=== PATIENT | female | born 1955 | race Caucasian/White ===

== ENCOUNTER → 2017-08-18 11:19 | Outpatient (CLI) | payer BC, SELFPAY ==
--- NOTE | 2017-08-18 11:26 | RAD_ITS ---
STUDY: X-RAY CHEST REASON FOR EXAM: Female, 61 years old. Cough. TECHNIQUE: Frontal and lateral views of the chest. COMPARISON: 01/24/2016. FINDINGS: The lungs are clear and expanded. There is no demonstrated pleural abnormality. Normal size heart. Normal mediastinum and gildardo. Normal visualized pulmonary arteries. There is atherosclerotic calcification of the aortic arch with tortuosity. There are diffuse degenerative changes of the visualized thoracic spine. Normal visualized ribs, clavicles, and shoulders. There is no demonstrated abnormality of the visualized soft tissue structures of the upper abdomen. RAD/Chest PA and Lateral IMPRESSION: No evidence for acute cardiopulmonary pathology. Electronically Signed: Rex Coombs MD at 3:45 EDT , Service support ,
== END ==
PROVIDERS: Family Provider Internal Medicine; PCP Internal Medicine; Visit Provider Internal Medicine
DX: R05 Cough (principal)
CPT/HCPCS: 71046

== ENCOUNTER 2020-07-01 15:17 | Observation (INO) | payer BC, SELFPAY ==
[2020-07-01] VITALS (8 sets, daily range): BP systolic 128–174; BP diastolic 49–81; PULSE 67–92; RESP 16–20; TEMP 36.6–36.7; O2SAT 94–98; BMI 28.3; BMI 28.8; BMI 28.9
--- NOTE | 2020-07-01 15:26 | EKG12_ITS ---
Test Reason : AM EKG Blood Pressure : / mmHG Vent. Rate : 061 BPM Atrial Rate : 061 BPM P-R Int : 154 ms QRS Dur : 092 ms QT Int : 410 ms P-R-T Axes : -21 056 052 degrees QTc Int : 412 ms Normal sinus rhythm Normal ECG When compared with ECG of 01-JUL-2020 17:03, MANUAL COMPARISON REQUIRED, DATA IS UNCONFIRMED Confirmed by BETH CORTEZ, CURTIS ([id number]), assignment editor ANNETTE VILLANUEVA ([id number]) on 07/04/2020 1:01:52 PM Referred By: DR PICHARDO Confirmed By:CURTIS CAMPOS MD
[2020-07-01] MEDS: Aspirin 81 MG TAB.CHEW 324 MG PO (15:30)
--- NOTE | 2020-07-01 15:30 | RAD_ITS ---
STUDY: X-RAY CHEST REASON FOR EXAM: Female, 64 years old. chest pain TECHNIQUE: Single AP portable view of the chest. COMPARISON: AUGUST 18, 2017 FINDINGS: The lungs are clear and expanded. There is no demonstrated pleural abnormality. Normal size heart. Normal mediastinum and gildardo. Normal visualized pulmonary arteries. There is atherosclerotic calcification of the aortic arch with tortuosity. There are diffuse degenerative changes of the visualized thoracic spine. Normal visualized ribs, clavicles, and shoulders. There is no demonstrated abnormality of the visualized soft tissue structures of the upper abdomen. RAD/Chest 1 View (Portable) IMPRESSION: No acute process Electronically Signed: Kamaljit Ramirez MD at 16:48 EDT , Service support ,
--- NOTE | 2020-07-01 15:30 | ED.VIS.GEN ---
History of Present Illness Chief Complaint: Chest Pain Informant: Patient Onset: Hours Context: Sudden Onset Timing: Continuous Quality: Sharp mid chest left breast area Location: Left-sided chest Current Severity: Moderate Maximum Severity: Severe Worsened by: Nothing Relieved by: Nothing Associated Symptoms: Mild shortness of breath Narrative: She is a 64-year-old woman with history hypertension who is a smoker for 45+ years that presented because of left-sided sharp chest pain with mild shortness of breath. She denies history of coronary disease or heart problems. She states she has prediabetes. Her last A1c was 6.9. She also has hypercholesterolemia. She denies recent exertional chest pain. Patient denies headache, visual, ocular auditory symptoms. She denies loss of taste or smell. She denies exposure to Covid. She denies history of PE or DVT. She denies recent travel, surgery or immobilization. She denies leg pain, swelling discoloration. She denies orthopnea or PND. She denies gallbladder disease or intolerance to greasy or fried foods. She denies black or maroon-colored stool. Prior similar symptoms: No Recent Illness/Hospitalization: No - Past Medical History (1) Arm paresthesia, left Status: Acute (2) Cervical nerve root impingement Status: Acute (3) Family history of heart disease Status: Chronic (4) HLD (hyperlipidemia) Status: Chronic (5) HTN (hypertension) Status: Chronic (6) Nicotine addiction Status: Chronic Past Medical History - Allergies and Home Meds Allergies/Adverse Reactions: Allergies Sulfa (Sulfonamide Antibiotics) Allergy (Verified 07/01/20 15:18) Anaphylaxis Primary Care Physician: Nicolle John DO [Primary Care Provider] - Prior records reviewed: Yes Surgical History: no surgical history Lives: Alone Smoking Status: Current every day smoker Alcohol: Rare Drugs: None Review of Systems General: Denies: Chills, Fever, Malaise, Subjective, Sweats Eyes: Denies: Visual changes - bilaterally, Blurred Vision - bilaterally ENT: Denies: Rhinorrhea, Sore throat Cardiovascular: Reports: Chest pain. Denies: Palpitations, Heart racing, -, - Respiratory: Reports: Dyspnea. Denies: Cough, Sputum, Dyspnea on exertion, Orthopnea, Paroxysmal nocturnal dyspnea, -, - Genitourinary: Denies: Dysuria, Hematuria, Frequency Musculoskeletal: Denies: Myalgias, Arthralgias, Neck pain, Back pain, Swelling, Extremity Pain, -, - Skin: Denies: Rash, Wounds Neurological: Denies: Headache, Weakness Endocrine: Denies: Polyuria, Polydipsia Hematologic: Denies: Easy bruising, Easy bleeding Physical Exam Vital Signs/Narrative: Vital Signs Temp Pulse Resp BP Pulse Ox 07/01/20 15:18 97.8 F 92 20 H 174/73 H 98 Inital Vital Signs reviewed: Yes General: Well nourished, Well developed, Obese, No Acute Distress Head: Normocephalic, Atraumatic Eyes: Perrl, EOMI ENT: Moist mucous membranes, No rhinorrhea Neck: Supple, Nontender Cardiovascular: Regular rate, Regular rhythm, No murmurs, Normal S1, Normal S2 Respiratory: No distress, CTA bilaterally, Chest nontender Abdomen: Soft, Nontender, Nondistended, Normal bowel sounds, No masses. Negative for: Demarco's sign Back: Nontender, Normal Inspection, - - There is no asymmetry, swelling, discoloration, leg vein distention, palpable cords or tenderness along the distribution of the deep venous system. Extremities: Nontender, No edema Skin: Normal color, No rash Neurological: Alert, Oriented x3, Cranial nerves II-XII grossly intact, Normal Strength, Normal Sensation Psychological: Normal affect, Normal Mood Diagnostic/Tx/Re-eval Chest X-Ray - ED: 1 View, Read by ED Physician, Normal, Heart, Lungs, Mediastinum, Bony Structures, No Acute Disease, - - Single view chest x-ray was interpreted by me at 1544. 07/01/20 15:30 Chest 1 View (Portable) [RAD] Stat Laboratory Results 07/01/20 07/01/20 15:27 15:27 WBC 10.5 RBC 4.97 Hgb 15.3 H Hct 44.8 MCV 90.1 MCH 30.8 MCHC 34.2 RDW Std Deviation 41.5 RDW Coeff of Trixie 12.6 Plt Count 323 MPV 9.8 Immature Gran % (Auto) 0.600 Neut % (Auto) 57.8 Lymph % (Auto) 31.7 [place] % (Auto) 8.1 Eos % (Auto) 0.9 Baso % (Auto) 0.9 Absolute Neuts (auto) 6.1 Absolute Lymphs (auto) 3.34 Nucleated RBC % 0 Sodium 138 Potassium 3.4 L Chloride 107 Carbon Dioxide 25.0 Anion Gap 6 BUN 13 Creatinine 0.82 Estim Creat Clear Calc 70.68 Est GFR (MDRD) Af Amer 90 Est GFR (MDRD) Non-Af 75 BUN/Creatinine Ratio 15.9 Glucose 126 H Calcium 9.4 Troponin I < 0.015 Patient states there was no improvement with nitro. 4 mg of morphine and 4 mg Zofran was ordered. Patient's heart score is 4. For this reason hospitalist was paged for PCU 23 observation if patient is willing to stay otherwise will sign out AMA - EKG Initial EKG Interpretation: Sinus Rhythm - Normal sinus rhythm with a ventricular rate 83. MS interval is 136 ms. QRS duration 96 ms. QT duration 372 ms. [place] is normal. She does have abnormality ST segment in V1. This is unchanged from February 08, 2014. - Medical Decision Making Presents with chest pain. Differential diagnosis would include cardiac versus noncardiac ischemia. Doubt pulmonary embolus. This may represent GI etiology. EKG, chest x-ray and appropriate blood work was ordered. Since she is still experiencing pain and had slight ST elevation in V1 nitro series was ordered. The EKG performed today was compared to most recent which is February 08, 2014 and is unchanged. ED Disposition - Plan for ED Patient: Disposition: Acute Care Hospital [facility] Diagnosis: Chest pain, HTN (hypertension), HLD (hyperlipidemia) Referrals: Nicolle John DO [Primary Care Provider] -
[2020-07-01] MEDS: Nitroglycerin SL (ED/IMG/CATH) 0.4 MG TABLET SL ×2 (15:35→15:56)
[2020-07-01 15:40] LABS: Absolute Lymphocyte Count 3.34 X10^3/uL (0.83-4.51); Absolute Neutrophil Count 6.1 X10^3/uL (2.0-7.7); Basophil% 0.9 % (0-1); Eosinophil# 0.09 X10^3/uL; Eosinophils% 0.9 % (0-5); Hematocrit 44.8 % (37-47); Hemoglobin 15.3 g/dL (12.0-15.0); Lymphocyte # 3.34 X10^3/ul (4.0); Lymphocyte % 31.7 % (19-41); Mean Corp Hgb Conc 34.2 g/dL (32-36); Mean Corpuscular Hgb 30.8 pg (27.0-32.0); Mean Corpuscular Volume 90.1 fL (81-99); Mean Platelet Vol. 9.8 fl (6.2-12.0); Monocyte# 0.85 X10^3/uL; Monocyte% 8.1 % (0-10); NRBC Flagged by Analyzer 0 % (0-5); Neutrophil % 57.8 % (47-70); Platelet Count 323 K/mm3 (150-450); RBC Distribution Width CV 12.6 % (11.6-14.6); RBC Distribution Width SD 41.5 fl (35.1-43.9); Red Blood Count 4.97 M/mm3 (4.2-5.4); White Blood Count 10.5 K/mm3 (4.4-11.0)
[2020-07-01 15:53] LABS: Anion Gap 6 (5-15); BUN 13 mg/dL (7-18); BUN/Creat Ratio 15.9 RATIO (10-20); Calcium,Total 9.4 mg/dL (8.5-10.1); Chloride 107 mmol/L (98-107); Creatinine, Serum 0.82 mg/dL (0.55-1.02); EST Glomerular Filtration Rate 75 mL/min (>60); Est Glom Filt Rate - Afr Amer 90 mL/min (>60); Estimated Creatinine Clearance 70.68 ml/min; Glucose 126 mg/dL (74-106); Potassium 3.4 mmol/L (3.5-5.1); Sodium Level 138 mmol/L (136-145)
[2020-07-01] MEDS: Morphine 4 MG/ML Syringe IV (16:06)
[2020-07-01] MEDS: Ondansetron 4 MG/2 ML Vial IV (16:06)
--- NOTE | 2020-07-01 16:56 | HP.PCM_ITS ---
<Jolynn Earl [employer] - Last Filed: 07/01/20 17:03> Problem List (1) Chest pain Status: Acute (2) Radicular pain in left arm Status: Resolved (3) Cervical nerve root impingement Status: Chronic (4) HTN (hypertension) Status: Chronic (5) Arm paresthesia, left Status: Resolved (6) HLD (hyperlipidemia) Status: Chronic (7) Family history of heart disease Status: Chronic (8) Nicotine addiction Status: Chronic History of Present Illness Date of Admission: 07/01/20 Chief Complaint: Chest pain. The patient is a 64 year old F who presents to emergency room due to chest pain. Patient states this began this afternoon while she was driving her car. She states pain was sharp and under her left breast. She reports 8 out of 10 pain. Denies pain radiation. Denies lightheadedness, shortness of breath, diaphoresis. Patient reports pain lasted until receiving morphine in the emergency room. She states over the past couple days she has had intermittent left arm aching. Denies other symptoms or complaints. She has a past medical history of hypertension, hyperlipidemia, tobacco dependence, hypothyroidism, anxiety. Past Medical History Past Medical History (Chronic Problems): Chronic Problems Cervical nerve root impingement (Chronic) HTN (hypertension) (Chronic) HLD (hyperlipidemia) (Chronic) Family history of heart disease (Chronic) Nicotine addiction (Chronic) Allergies Sulfa (Sulfonamide Antibiotics) Allergy (Verified 07/01/20 15:18) Anaphylaxis Home Medications: Ambulatory Orders Medication Instructions Recorded Amlodipine [Norvasc] 5 mg PO DAILY 07/01/20 Levothyroxine [Synthroid] 75 mcg PO DAILY 07/01/20 Lorazepam 0.5 mg PO QHS PRN 07/01/20 Losartan Potassium 50 mg PO DAILY 07/01/20 Surgical History: no surgical history Psychiatric History: No pertinent psych hx ALLERGY PHYSICIAN History: No pertinent ALLERGY PHYSICIAN history Lives: Spouse/ Significant Other Smoking Status: Current every day smoker Alcohol: Occasional Drugs: None - *Family History Maternal History Items: Heart Disease, Hypertension Paternal History Items: - - States she does not know her father or his medical history. Review of Systems Constitutional: Denies: Chills, Fever, Weight Change HEENT: Denies: Head Aches, Sinus Congestion, Sinus Drainage Cardiovascular: Reports: Chest Pain Respiratory: Denies: Cough, Shortness of breath at rest, Sputum production Gastrointestinal: Denies: Abdominal Pain, Nausea, Vomiting Genitourinary: Denies: Dysuria Musculoskeletal: Denies: Joint Pain, Joint Tenderness Skin: Denies: Rash, Wounds Neurological: Denies: Numbness, Tingling, Focal weakness Psychiatric: Reports: Anxiety. Denies: Depression, Homicidal Ideations, Suicidal Ideations Hematologic/ Lymphatic: Denies: Easy Bruising, Easy Bleeding VTE Information - Inpt Only VTE Present on Admission: No VTE Mechan Device Prophylaxis: None VTE Pharm Prophylaxis ordered?: Yes Patient Problems: Active and Suspected Problems Chest pain (Acute) - Physical Exam Vitals/I&O's: Vital Signs Temp Pulse Resp BP Pulse Ox 97.9 F 68 18 147/68 H 94 07/01/20 16:45 07/01/20 16:48 07/01/20 16:45 07/01/20 16:45 07/01/20 16:45 Oxygen Delivery Method Room Air Weight: 142 lb 6.698 oz Body Mass Index (BMI) 28.3 General: Alert, Oriented x3, Cooperative HEENT: Atraumatic, PERRLA, EOMI, Normocephalic Neck: Supple, No JVD, Negative Carotid Bruits Lungs: Clear to auscultation, Normal air movement Cardiovascular: Regular rate, No murmurs Abdomen: Bowel Sounds Present, Soft, Non Tender Extremities: No clubbing, No cyanosis, No edema, Capillary Refill Less than 3 Seconds Skin: No rashes, No breakdown Musculoskeletal: No Tenderness to Palpation of Joints or Extremities Neurological: Cranial nerves II-XII grossly intact, Neuro grossly intact Psych/Mental Status: Normal Affect, Appropriate Laboratory Results 07/01/20 15:27: WBC 10.5, RBC 4.97, Hgb 15.3 H, Hct 44.8, MCV 90.1, MCH 30.8, MCHC 34.2, RDW Std Deviation 41.5, RDW Coeff of Trixie 12.6, Plt Count 323, MPV 9.8, Immature Gran % (Auto) 0.600, Neut % (Auto) 57.8, Lymph % (Auto) 31.7, [place] % (Auto) 8.1, Eos % (Auto) 0.9, Baso % (Auto) 0.9, Absolute Neuts (auto) 6.1, Absolute Lymphs (auto) 3.34, Nucleated RBC % 0 07/01/20 15:27: Sodium 138, Potassium 3.4 L, Chloride 107, Carbon Dioxide 25.0, Anion Gap 6, BUN 13, Creatinine 0.82, Estim Creat Clear Calc 70.68, Est GFR (MDRD) Af Amer 90, Est GFR (MDRD) Non-Af 75, BUN/Creatinine Ratio 15.9, Glucose 126 H, Calcium 9.4, Troponin I < 0.015 Current Medications Acetaminophen (Acetaminophen 325 Mg Tablet) 650 mg PO Q6H PRN PRN PRN Reason: Pain Score 1-10/Temp > 100.7 F Al Hydroxide/Mg Hydroxide (Mag Hydrox/Al Hydrox/Simeth 30 Ml Udc) 30 ml PO Q6H PRN PRN PRN Reason: Gastric Burning Amlodipine Besylate (Amlodipine 5 Mg Tablet) 5 mg PO DAILY INDRA Enoxaparin Sodium (Enoxaparin 40 Mg/0.4 Ml Syringe) 40 mg SC DAILY INDRA Levothyroxine Sodium (Levothyroxine 75 Mcg Tablet) 75 mcg PO DAILY@0600 INDRA Lorazepam (Lorazepam 0.5 Mg Tablet) 0.5 mg PO QHS PRN PRN PRN Reason: ANXIETY Losartan Potassium (Losartan Potassium 50 Mg Tablet) 50 mg PO DAILY INDRA Magnesium Hydroxide (Magnesium Hydroxide 30 Ml Udc) 30 ml PO DAILY PRN PRN PRN Reason: Constipation Nitroglycerin (Nitroglycerin Sl (Ed/Img/Cath) 0.4 Mg Tablet) 0.4 mg SL Q5M PRN PRN Reason: Chest pain Last Admin: 07/01/20 15:56 Dose: 0.4 mg Documented by: Ondansetron HCl (Ondansetron 4 Mg/2 Ml Vial) 4 mg IV Q8H PRN PRN PRN Reason: NAUSEA/VOMITING Senna/Docusate Sodium (Senna/Docusate Sodium 1 Tablet) 2 tablet PO BID PRN PRN PRN Reason: Constipation Sodium Chloride (0.9% Saline Lock 10 Ml Syringe) 10 - 40 ml IV UD PRN PRN Reason: SALINE FLUSH Assessment/Plan All Active Problems Chest pain (Acute) Arm paresthesia, left (Resolved) Radicular pain in left arm (Resolved) 1. Chest pain, atypical-initial troponin negative. EKG without ST-T changes. Trend enzymes. Stress test in a.m. Fasting lipid panel in a.m. Baby aspirin. 2. Hypertension-continue amlodipine, losartan. 3. Hyperlipidemia-not on statin. Fasting lipid panel in a.m. 4. Anxiety-on as needed lorazepam. 5. Tobacco dependence-encouraged cessation. Declines nicotine replacement patch. This patient was seen by IMANI Pacheco under the supervision of Dr. Hart. <Tammie Hart - Last Filed: 07/01/20 17:29> History of Present Illness The patient is a 64 year old F [] Past Medical History Allergies Sulfa (Sulfonamide Antibiotics) Allergy (Verified 07/01/20 15:18) Anaphylaxis - Physical Exam Vitals/I&O's: Vital Signs Temp Pulse Resp BP Pulse Ox 97.9 F 68 18 147/68 H 94 07/01/20 16:45 07/01/20 16:48 07/01/20 16:45 07/01/20 16:45 07/01/20 16:45 Oxygen Delivery Method Room Air Weight: 64.864 kg Body Mass Index (BMI) 28.8 Laboratory Results 07/01/20 15:27: WBC 10.5, RBC 4.97, Hgb 15.3 H, Hct 44.8, MCV 90.1, MCH 30.8, MCHC 34.2, RDW Std Deviation 41.5, RDW Coeff of Trixie 12.6, Plt Count 323, MPV 9.8, Immature Gran % (Auto) 0.600, Neut % (Auto) 57.8, Lymph % (Auto) 31.7, [place] % (Auto) 8.1, Eos % (Auto) 0.9, Baso % (Auto) 0.9, Absolute Neuts (auto) 6.1, Absolute Lymphs (auto) 3.34, Nucleated RBC % 0 07/01/20 15:27: Sodium 138, Potassium 3.4 L, Chloride 107, Carbon Dioxide 25.0, Anion Gap 6, BUN 13, Creatinine 0.82, Estim Creat Clear Calc 70.68, Est GFR (MDRD) Af Amer 90, Est GFR (MDRD) Non-Af 75, BUN/Creatinine Ratio 15.9, Glucose 126 H, Calcium 9.4, Troponin I < 0.015 Current Medications Acetaminophen (Acetaminophen 325 Mg Tablet) 650 mg PO Q6H PRN PRN PRN Reason: Pain Score 1-10/Temp > 100.7 F Al Hydroxide/Mg Hydroxide (Mag Hydrox/Al Hydrox/Simeth 30 Ml Udc) 30 ml PO Q6H PRN PRN PRN Reason: Gastric Burning Amlodipine Besylate (Amlodipine 5 Mg Tablet) 5 mg PO DAILY [facility] Enoxaparin Sodium (Enoxaparin 40 Mg/0.4 Ml Syringe) 40 mg SC DAILY INDRA Levothyroxine Sodium (Levothyroxine 75 Mcg Tablet) 75 mcg PO DAILY@0600 INDRA Lorazepam (Lorazepam 0.5 Mg Tablet) 0.5 mg PO QHS PRN PRN PRN Reason: ANXIETY Losartan Potassium (Losartan Potassium 50 Mg Tablet) 50 mg PO DAILY INDRA Magnesium Hydroxide (Magnesium Hydroxide 30 Ml Udc) 30 ml PO DAILY PRN PRN PRN Reason: Constipation Nitroglycerin (Nitroglycerin Sl (Ed/Img/Cath) 0.4 Mg Tablet) 0.4 mg SL Q5M PRN PRN Reason: Chest pain Last Admin: 07/01/20 15:56 Dose: 0.4 mg Documented by: Ondansetron HCl (Ondansetron 4 Mg/2 Ml Vial) 4 mg IV Q8H PRN PRN PRN Reason: NAUSEA/VOMITING Senna/Docusate Sodium (Senna/Docusate Sodium 1 Tablet) 2 tablet PO BID PRN PRN PRN Reason: Constipation Sodium Chloride (0.9% Saline Lock 10 Ml Syringe) 10 - 40 ml IV UD PRN PRN Reason: SALINE FLUSH Assessment/Plan This patient was seen in conjunction with Jolynn Earl [employer]. I have independently interviewed and examined the patient and reviewed pertinent historical, laboratory, and other data. Please refer to her note for patient's presentation, findings, and recommendations. 64-year-old with past medical history hypertension, hyperlipidemia, anxiety disorder who comes in complaints of left sided chest pain, located in the left breast, that started while driving to work. Patient has some prior left discomfort the night before. It was resolved by the next morning. This lasted more than 30 minutes. He works in a [employer], go to work and was sent to the emergency department. Chest pain seems to be more pronounced and makes her want to takes in a deep breath. It is not worse with movement of the body. Sublingual nitro did not help much. Chest pain got improved with morphine. Vitals were reviewed -stable Physical Exam: Gen: Comfortable, not pale, not jaundiced, alert oriented x3 CVS:HS I +II, regular, no murmurs RESP: CTA GI: BS present and normal, nontender, no palpable organs EXT:No edema Labs reviewed: ASSESSMENT: 1. Chest pain, atypical 2. Hypertension 3. Hyperlipidemia 4. Nicotine dependence 5. Anxiety disorder EKG showed no acute ST-T changes, normal sinus rhythm Initial troponin is negative Meds reviewed Plan: Admit to PCU Cycle troponin Stress test in a.m. OBSV E&M: 42719 Initial observation care L3
--- NOTE | 2020-07-01 17:16 | EKG12_ITS ---
Test Reason : Blood Pressure : / mmHG Vent. Rate : 064 BPM Atrial Rate : 064 BPM P-R Int : 148 ms QRS Dur : 098 ms QT Int : 428 ms P-R-T Axes : -10 049 043 degrees QTc Int : 441 ms Normal sinus rhythm Normal ECG When compared with ECG of 08-FEB-2014 13:00, No significant change was found Confirmed by BETH CORTEZ, CURTIS ([id number]), editor managing director ANNETTE VILLANUEVA ([id number]) on 07/04/2020 1:07:38 PM Referred By: MARINO Confirmed By:CURTIS CAMPOS MD
[2020-07-01] MEDS: Potassium Chloride Oral Tablet 20 MEQ 60 MEQ PO (17:56)
[2020-07-02 03:00] VITALS: PULSE 64
[2020-07-02 03:36] VITALS: BP 128/72; PULSE 74; RESP 16; TEMP 36.1; O2SAT 96
--- NOTE | 2020-07-02 05:21 | EKG12_ITS ---
Test Reason : CP Blood Pressure : / mmHG Vent. Rate : 083 BPM Atrial Rate : 083 BPM P-R Int : 136 ms QRS Dur : 096 ms QT Int : 372 ms P-R-T Axes : 069 059 081 degrees QTc Int : 437 ms Normal sinus rhythm Nonspecific ST and T wave abnormality Abnormal ECG Confirmed by BETH CORTEZ, CURTIS ([id number]), news editor ANNETTE VILLANUEVA ([id number]) on 07/05/2020 9:34:53 AM Referred By: ALDO Confirmed By:CURTIS CAMPOS MD
[2020-07-02] MEDS: Levothyroxine 75 MCG Tablet PO (06:17)
[2020-07-02] MEDS: Losartan Potassium 50 MG Tablet PO (06:17)
[2020-07-02 06:19] LABS: Absolute Lymphocyte Count 3.45 X10^3/uL (0.83-4.51); Absolute Neutrophil Count 5.7 X10^3/uL (2.0-7.7); Basophil# 0.07 X10^3/uL; Basophil% 0.7 % (0-1); Hematocrit 44.6 % (37-47); Hemoglobin 14.5 g/dL (12.0-15.0); Lymphocyte # 3.45 X10^3/ul (4.0); Lymphocyte % 33.9 % (19-41); Mean Corp Hgb Conc 32.5 g/dL (32-36); Mean Corpuscular Hgb 30.1 pg (27.0-32.0); Mean Corpuscular Volume 92.7 fL (81-99); Monocyte# 0.78 X10^3/uL; Monocyte% 7.7 % (0-10); NRBC Flagged by Analyzer 0 % (0-5); Neutrophil # 5.65 X10^3/uL (2.7-7.7); Neutrophil % 55.4 % (47-70); Platelet Count 280 K/mm3 (150-450); RBC Distribution Width CV 12.8 % (11.6-14.6); RBC Distribution Width SD 43.9 fl (35.1-43.9); Red Blood Count 4.81 M/mm3 (4.2-5.4); White Blood Count 10.2 K/mm3 (4.4-11.0)
[2020-07-02 06:23] VITALS: BP 140/75; PULSE 64; RESP 16; TEMP 36.6; O2SAT 94
[2020-07-02 06:52] LABS: AST(SGOT) 11 U/L (15-37); Alanine Aminotransfer ALT/SGPT 24 U/L (13-56); Albumin, Serum 3.6 g/dL (3.2-5.0); Alkaline Phosphatase 80 U/L (45-117); Anion Gap 4 (5-15); BUN 10 mg/dL (7-18); BUN/Creat Ratio 14.9 RATIO (10-20); Calcium,Total 8.9 mg/dL (8.5-10.1); Chloride 107 mmol/L (98-107); Creatinine, Serum 0.67 mg/dL (0.55-1.02); EST Glomerular Filtration Rate 94 mL/min (>60); Est Glom Filt Rate - Afr Amer 113 mL/min (>60); Estimated Creatinine Clearance 86.11 ml/min; Globulin 3.7 g/dL (2.2-4.2); Glucose 128 mg/dL (74-106); Potassium 4.3 mmol/L (3.5-5.1); Protein, Total 7.3 g/dL (6.4-8.2); Sodium Level 137 mmol/L (136-145)
[2020-07-02 06:59] VITALS: PULSE 63
[2020-07-02 07:58] VITALS: PULSE 66
[2020-07-02 11:34] VITALS: BP 122/51; PULSE 64; RESP 16; TEMP 36.6; O2SAT 96
--- NOTE | 2020-07-02 11:45 | DCINST_ITS ---
- Discharge Diagnoses Current Active Problems: Current Active and Chronic Problems Chest pain (Acute) Cervical nerve root impingement (Chronic) HTN (hypertension) (Chronic) HLD (hyperlipidemia) (Chronic) Family history of heart disease (Chronic) Nicotine addiction (Chronic) Reason(s) for Visit for Discharge Instructions: Chest pain You will use the following diet at home:: Cardiac Your food should be the consistency of: Regular Your liquids should be the consistency of: Regular/Thin Discharge Activity: Return to Normal Activity, No Restrictions Call your doctor if you observe: Numbness or Tingling, Shortness of breath, Dizziness, Chest pain, Increased palpitations (irregular heartbeat) Instructions: ED Chest Pain, Noncardiac, High Cholesterol: Assessing Your Risk, Controlling High Blood Pressure, What Is Angina? Allergies/Adverse Reactions: Allergies Sulfa (Sulfonamide Antibiotics) Allergy (Verified 07/01/20 15:18) Anaphylaxis Medications to take at Discharge Amlodipine [Norvasc] 5 mg PO DAILY 07/01/20 Levothyroxine [Synthroid] 75 mcg PO DAILY 07/01/20 Lorazepam 0.5 mg PO QHS PRN 07/01/20 Losartan Potassium 50 mg PO DAILY 07/01/20 Primary Care Physician: Nicolle John DO [Primary Care Provider] - Please follow up with your Primary Care Physician in: 1-2 weeks Test Results: Test results from this visit will be discussed in further detail at your follow- up appointment, if applicable. Proposed Discharge Date: 07/02/20
--- NOTE | 2020-07-02 11:48 | PCM.DC.SUM ---
Discharge Date and Diagnosis - Problem List Patient Problems: Active and Suspected Problems Chest pain (Acute) Date of Admission: 07/01/20 Date of Discharge: 07/02/20 - Primary Discharge Diagnosis Acute Problems: Active Problems Chest pain (Acute) - Secondary Discharge Diagnosis Chronic Problems: Chronic Problems Cervical nerve root impingement (Chronic) HTN (hypertension) (Chronic) HLD (hyperlipidemia) (Chronic) Family history of heart disease (Chronic) Nicotine addiction (Chronic) Hospital Course and Treatment Imaging Results: 07/02/20 05:55 Nuclear Stress Test - Treadmil [NM] AM (NON MEDS) Operations: None Procedures: Stress test Summary of Care Provided: The patient is a 64 year old F presented with left-sided chest pain radiating straight through to her back. Patient underwent stress test this morning. Troponin x3. Patient continues to have intermittent chest pain that no inciting factors. No shortness of breath, palpitations, tightness. Patient is ambulatory in room without difficulty. Patient Problems: Active and Suspected Problems Chest pain (Acute) - Physical Exam Vitals/I&O's: Vital Signs Temp Pulse Resp BP Pulse Ox 98 F 64 16 122/51 H 96 07/02/20 11:34 07/02/20 11:34 07/02/20 11:34 07/02/20 11:34 07/02/20 11:34 Oxygen Delivery Method Room Air Weight: 141 lb 12.116 oz Body Mass Index (BMI) 28.8 Intake and Output for Last 24 Hours 06/30/20 07/01/20 07/02/20 23:59 23:59 23:59 Intake Total 420 / 420 100 / 100 Balance 420 / 420 100 / 100 General: Alert, Oriented x3, Cooperative HEENT: Atraumatic, PERRLA, EOMI, Normocephalic Neck: Supple, No JVD, Negative Carotid Bruits Lungs: Clear to auscultation, Normal air movement Cardiovascular: Regular rate, Regular Rhythm, Normal S1, Normal S2, No murmurs Abdomen: Bowel Sounds Present, Soft, Non Tender Extremities: No edema, Capillary Refill Less than 3 Seconds Skin: No rashes, No breakdown Musculoskeletal: No Tenderness to Palpation of Joints or Extremities Neurological: Cranial nerves II-XII grossly intact Psych/Mental Status: Normal Affect, Appropriate Laboratory Results 07/01/20 15:27: WBC 10.5, RBC 4.97, Hgb 15.3 H, Hct 44.8, MCV 90.1, MCH 30.8, MCHC 34.2, RDW Std Deviation 41.5, RDW Coeff of Trixie 12.6, Plt Count 323, MPV 9.8, Immature Gran % (Auto) 0.600, Neut % (Auto) 57.8, Lymph % (Auto) 31.7, Williams % (Auto) 8.1, Eos % (Auto) 0.9, Baso % (Auto) 0.9, Absolute Neuts (auto) 6.1, Absolute Lymphs (auto) 3.34, Nucleated RBC % 0 07/01/20 15:27: Sodium 138, Potassium 3.4 L, Chloride 107, Carbon Dioxide 25.0, Anion Gap 6, BUN 13, Creatinine 0.82, Estim Creat Clear Calc 70.68, Est GFR (MDRD) Af Amer 90, Est GFR (MDRD) Non-Af 75, BUN/Creatinine Ratio 15.9, Glucose 126 H, Calcium 9.4, Troponin I < 0.015 07/01/20 18:00: Troponin I < 0.015 07/01/20 21:07: Troponin I < 0.015 07/02/20 06:02: WBC 10.2, RBC 4.81, Hgb 14.5, Hct 44.6, MCV 92.7, MCH 30.1, MCHC 32.5, RDW Std Deviation 43.9, RDW Coeff of Trixie 12.8, Plt Count 280, MPV 10.0, Immature Gran % (Auto) 0.300, Neut % (Auto) 55.4, Lymph % (Auto) 33.9, Williams % (Auto) 7.7, Eos % (Auto) 2.0, Baso % (Auto) 0.7, Absolute Neuts (auto) 5.7, Absolute Lymphs (auto) 3.45, Nucleated RBC % 0 07/02/20 06:02: Sodium 137, Potassium 4.3, Chloride 107, Carbon Dioxide 26.0, Anion Gap 4 L, BUN 10, Creatinine 0.67, Estim Creat Clear Calc 86.11, Est GFR (MDRD) Af Amer 113, Est GFR (MDRD) Non-Af 94, BUN/Creatinine Ratio 14.9, Glucose 128 H, Calcium 8.9, Total Bilirubin 0.60, AST 11 L, ALT 24, Alkaline Phosphatase 80, Total Protein 7.3, Albumin 3.6, Globulin 3.7, Albumin/Globulin Ratio 1.0 Current Medications Acetaminophen (Acetaminophen 325 Mg Tablet) 650 mg PO Q6H PRN PRN PRN Reason: Pain Score 1-10/Temp > 100.7 F Al Hydroxide/Mg Hydroxide (Mag Hydrox/Al Hydrox/Simeth 30 Ml Udc) 30 ml PO Q6H PRN PRN PRN Reason: Gastric Burning Amlodipine Besylate (Amlodipine 5 Mg Tablet) 5 mg PO DAILY [facility] Last Admin: 07/02/20 06:18 Dose: Not Given Documented by: Enoxaparin Sodium (Enoxaparin 40 Mg/0.4 Ml Syringe) 40 mg SC DAILY [facility] Last Admin: 07/02/20 06:18 Dose: Not Given Documented by: Levothyroxine Sodium (Levothyroxine 75 Mcg Tablet) 75 mcg PO DAILY@0600 [facility] Last Admin: 07/02/20 06:17 Dose: 75 mcg Documented by: Lorazepam (Lorazepam 0.5 Mg Tablet) 0.5 mg PO QHS PRN PRN PRN Reason: ANXIETY Losartan Potassium (Losartan Potassium 50 Mg Tablet) 50 mg PO DAILY [facility] Last Admin: 07/02/20 06:17 Dose: 50 mg Documented by: Magnesium Hydroxide (Magnesium Hydroxide 30 Ml Udc) 30 ml PO DAILY PRN PRN PRN Reason: Constipation Nitroglycerin (Nitroglycerin Sl (Ed/Img/Cath) 0.4 Mg Tablet) 0.4 mg SL Q5M PRN PRN Reason: Chest pain Last Admin: 07/01/20 15:56 Dose: 0.4 mg Documented by: Ondansetron HCl (Ondansetron 4 Mg/2 Ml Vial) 4 mg IV Q8H PRN PRN PRN Reason: NAUSEA/VOMITING Senna/Docusate Sodium (Senna/Docusate Sodium 1 Tablet) 2 tablet PO BID PRN PRN PRN Reason: Constipation Sodium Chloride (0.9% Saline Lock 10 Ml Syringe) 10 - 40 ml IV UD PRN PRN Reason: SALINE FLUSH Discharge Diet: No Restrictions Discharge Activity: Return to Normal Activity, No Restrictions Call your doctor if you observe: Numbness or Tingling, Shortness of breath, Dizziness, Chest pain, Increased palpitations (irregular heartbeat) Home Medications: Medications to take at Discharge Amlodipine [Norvasc] 5 mg PO DAILY 07/01/20 Levothyroxine [Synthroid] 75 mcg PO DAILY 07/01/20 Lorazepam 0.5 mg PO QHS PRN 07/01/20 Losartan Potassium 50 mg PO DAILY 07/01/20 Primary Care Physician: Nicolle John DO [Primary Care Provider] - Please follow up with your Primary Care Physician in: 1-2 weeks Patient Instructions: What Is Angina?, Controlling High Blood Pressure, High Cholesterol: Assessing Your Risk, ED Chest Pain, Noncardiac Disposition: Home Minutes spent on discharge:: 35 Patient Condition:: Good Medical Necessity - Tobacco Use Smoking Status: Current every day smoker Tobacco Use: Cigarettes Meaningful Use Info Meaningful Use Diagnoses (Choose all that apply): None applicable
--- NOTE | 2020-07-02 12:19 | PHA.DC.MR ---
Pharmacy Service has performed discharge medication reconciliation for this patient. The patient's discharge medication list was reviewed for discrepancies and discrepancies were resolved. Home Medications Amlodipine [Norvasc] 5 mg PO DAILY 07/01/20 Levothyroxine [Synthroid] 75 mcg PO DAILY 07/01/20 Lorazepam 0.5 mg PO QHS PRN 07/01/20 Losartan Potassium 50 mg PO DAILY 07/01/20
--- NOTE | 2020-07-02 12:34 | STRESSREP ---
Stress Test Report Exercise stress test. 64-year-old lady with a history of chest pain. Stress protocol: Resting KG demonstrates normal sinus rhythm with a rate of 59 bpm normal intervals are noted resting blood pressure is 144/72 mmHg. The patient exercised according to regular [place] protocol for a total duration of 7 minutes the maximum heart rate was 151 bpm which was 96% of maximum predicted heart rate the maximum workload was 10 metabolic equivalents. At rest there were no ST or T wave changes noted suggest ischemia at peak exercise upsloping ST changes were noted with no meet the criteria for ischemia. No clinical angina was noted the test was terminated due to leg discomfort. The peak blood pressure was 192/84. Myocardial perfusion protocol. 11.5 mCi of technetium 99m sestamibi was injected at rest. The patient exercised according to regular [place] protocol and at peak exercise 33.2 mCi of technetium 99m sestamibi was injected stress images were obtained stress and rest images were reconstructed and compared in the short axis vertical long horizontal long axis. Gated images were also obtained Perfusion SPECT analysis: Review of the stress images demonstrate normal uptake of tracer noted in all areas of the myocardium the resting images similar demonstrate normal uptake of tracer noted in all areas of the myocardium. No reversibility is noted suggest ischemia. Gated SPECT analysis: The gated ejection fraction is noted to be 71%. Conclusion: Normal exercise myocardial perfusion stress test at a moderate workload. Preserved ejection fraction.
--- NOTE | 2020-07-02 14:37 | NURSING ---
Late entry: Student nurse documentation reviewed.
== END 2020-07-02 11:47 | disposition home or self-care (01) ==
LOC: ED 16:07 → PCU 07-02 06:50
PROVIDERS: Admitting Provider Internal Medicine; Emergency Provider Emergency Medicine; PCP Internal Medicine; Visit Provider Family Medicine
DX: R07.89 Other chest pain (principal); I10 Essential (primary) hypertension; F17.210 Nicotine dependence, cigarettes, uncomplicated; R06.02 Shortness of breath; R73.03 Prediabetes; E78.5 Hyperlipidemia, unspecified; Z82.49 Family history of ischemic heart disease and other diseases of the circulatory system; Z79.899 Other long term (current) drug therapy; F41.9 Anxiety disorder, unspecified; E03.9 Hypothyroidism, unspecified; E87.6 Hypokalemia
CPT/HCPCS: 36415; 71045; 78452; 80048; 80053; 84484; 85025; 93005; 93017; 96374; 96375; 99218; 99285; A9500; A4216; G0378; J2405

== ENCOUNTER → 2021-02-14 12:41 | Outpatient (CLI) | payer MEDICARE, OTHER, SELFPAY ==
--- NOTE | 2021-02-14 12:48 | CT_ITS ---
STUDY: LOW DOSE CT LUNG CANCER SCREENING REASON FOR EXAM: Female, 65 years old. SMOKER. One pack per day for 40 years. RADIATION DOSAGE (If Supplied By Facility): CTDIvol = ( 2.01 ) mGy, DLP = ( 65.45 ) mGycm TECHNIQUE: No contrast was administered. Low dose technique was utilized (average mAS-38 and kVp 120). 1.25 mm axial source images with a slice interval of 1.25-mm were reconstructed in lung windows. 2.5 mm axial source images with a slice interval of 2.5-mm were reconstructed in lung windows. 5.0 mm axial source images with a slice interval of 5.0-mm were reconstructed in soft tissue windows. Nodule measured using lung windows on PACS and/or independent workstation with automated measurement of minimum and maximum diameter. Nodule measurement reported as average diameter rounded to the nearest whole number. Growth is defined as an increase ins size of greater than 1.5 mm. COMPARISON: None. NODULES: No suspicious nodules are seen. Emphysema: Mild degree of emphysematous changes. Increased linear markings in the medial aspect of the right middle lobe suggests lobar scarring. Endobronchial lesion: None Aorta: Mild degree of atherosclerotic calcification of the aortic arch. Coronary arteries: Unremarkable Heart: Unremarkable Pulmonary artery: Unremarkable Mediastinal nodes: Small benign-appearing mediastinal lymph nodes. Other chest and abdominal findings: Degenerative changes of the thoracic spine. CT/Low Dose CT Lung Screening IMPRESSION: Lung-RADS category 2 - Continue annual screening with LDCT in 12 months. IMPORTANT NOTES FOR USE: ACR Lung-RADS Version 1.1 Assessment Categories Release Date: 2018 Category: Coded 0-4 bases on nodule(s) with highest degree of suspicion. Negative screen is defined as categories 1 and 2; a positive screen is defined as categories 3 and 4. Category 3 and 4A nodules that are unchanged on interval CT should be coded as category 2, and individuals returned to screening in 12 months. Category 4X: Category 3 or 4 nodules with additional imaging findings that increase the suspicion of lung cancer, such as spiculation, GGN that doubles in size in 1 year, enlarged lymph notes, etc. Category Modifiers: S (significant finding unrelated to lung cancer) Electronically Signed: Art Epps MD at 14:26 EDT , Service support ,
== END ==
PROVIDERS: PCP Internal Medicine; Referring Provider Internal Medicine; Visit Provider Internal Medicine
DX: Z87.891 Personal history of nicotine dependence (principal)
CPT/HCPCS: 71271

== ENCOUNTER → 2022-02-27 | Outpatient (CLI) | payer MEDICARE, OTHER, SELFPAY ==
--- NOTE | 2022-02-27 13:00 | CDU_ITS ---
Reason For Study: Occlusion and stenosis Rt. Velocities/BP Lt. Velocities/BP Prox CCA 93.8/22.3 cm/sec. Prox CCA 90/26.2 cm/sec. Mid CCA 100.3/28.9 cm/sec. Mid CCA 82.6/23.7 cm/sec. Dist CCA 81.7/28.9 cm/sec. Dist CCA 66.7/20 cm/sec. Prox ICA 70.1/19.8 cm/sec. Prox ICA 53.2/16.3 cm/sec. Mid ICA 79/26.2 cm/sec. Mid ICA 77.7/21.2 cm/sec. Dist ICA 103.5/31.1 cm/sec. Dist ICA 55.6/18.8 cm/sec. Rt. ICA/CCA = 1.10. Lt. ICA/CCA = 0.94. Prox ECA 124.7/17 cm/sec. Prox ECA 77.7/15.1 cm/sec. Rt. Vert. 70.4/23.7 cm/sec. Lt. Vert. 29.1/5.5 cm/sec. Right Extracranial There is intimal thickening but no significant atherosclerotic plaque noted in the right common carotid artery. There is heterogeneous, irregular atherosclerotic plaque noted in the right internal carotid artery. There is intimal thickening but no significant atherosclerotic plaque noted in the right external carotid artery. Antegrade flow is noted in the right vertebral artery. Left Extracranial There is intimal thickening but no significant atherosclerotic plaque noted in the left common carotid artery. There is homogeneous, smooth atherosclerotic plaque noted in the left internal carotid artery. There is intimal thickening but no significant atherosclerotic plaque noted in the left external carotid artery. Antegrade flow is noted in the left vertebral artery. Procedure Carotid Duplex 61180. This is a Carotid Duplex examination using B-mode, color flow and specral Doppler. Exam performed in department. VL/Carotid Duplex Ultrasound Interpretation Summary Irregular plaque at the proximal right internal carotid artery with less than 5 0% stenosis Less than 50% stenosis right external carotid artery Smooth plaque at the proximal left internal carotid artery with less than 50% s tenosis Less than 50% stenosis left external carotid artery Patent and antegrade vertebrals bilaterally Compared to a previous study of April 06, 2011 when a slight increase in abraham ocity in the distal left internal carotid was noted that is not duplicated today. Ordering Physician: Nicolle John Referring Physician: Nicolle John Performed By: Angela Jacinto RVT
== END | disposition home or self-care (01) ==
PROVIDERS: PCP Internal Medicine; Referring Provider Internal Medicine; Visit Provider Internal Medicine
DX: I65.23 Occlusion and stenosis of bilateral carotid arteries (principal)
CPT/HCPCS: 93880

== ENCOUNTER → 2022-04-23 | Outpatient (CLI) | payer MEDICARE, OTHER, SELFPAY ==
[2022-04-23 14:49] LABS: Absolute Lymphocyte Count 2.82 X10^3/uL (0.83-4.51); Absolute Neutrophil Count 4.2 X10^3/uL (2.0-7.7); Basophil# 0.08 X10^3/uL; Eosinophil# 0.12 X10^3/uL; Eosinophils% 1.5 % (0-5); Hematocrit 44.1 % (37-47); Hemoglobin 14.5 g/dL (12.0-15.0); Lymphocyte # 2.82 X10^3/ul (0.83-4.51); Lymphocyte % 35.4 % (19-41); Mean Corp Hgb Conc 32.9 g/dL (32-36); Mean Corpuscular Hgb 30.3 pg (27.0-32.0); Mean Corpuscular Volume 92.3 fL (81-99); Mean Platelet Vol. 10.4 fl (6.2-12.0); Monocyte% 8.8 % (0-10); NRBC Flagged by Analyzer 0 % (0-5); Neutrophil # 4.21 X10^3/uL (2.7-7.7); Neutrophil % 52.8 % (47-70); Platelet Count 320 K/mm3 (150-450); RBC Distribution Width CV 13.2 % (11.6-14.6); RBC Distribution Width SD 44.8 fl (35.1-43.9); Red Blood Count 4.78 M/mm3 (4.2-5.4)
[2022-04-23 15:21] LABS: ALB/GLOB Ratio 1.1 RATIO (0.9-2.4); AST(SGOT) 11 U/L (15-37); Alanine Aminotransfer ALT/SGPT 25 U/L (13-56); Albumin, Serum 3.9 g/dL (3.2-5.0); Alkaline Phosphatase 75 U/L (45-117); Anion Gap 7 (5-15); BUN 10 mg/dL (7-18); BUN/Creat Ratio 14.9 RATIO (10-20); Chloride 105 mmol/L (98-107); Creatinine, Serum 0.67 mg/dL (0.55-1.02); EST Glomerular Filtration Rate 93 mL/min (>60); Est Glom Filt Rate - Afr Amer 113 mL/min (>60); Globulin 3.5 g/dL (2.2-4.2); Glucose 92 mg/dL (74-106); Potassium 3.9 mmol/L (3.5-5.1); Protein, Total 7.4 g/dL (6.4-8.2); Sodium Level 139 mmol/L (136-145); Thyroid Stim Hormone (TSH) 1.31 uIU/mL (0.358-3.74)
== END | disposition home or self-care (01) ==
LOC: LAB 13:57
PROVIDERS: PCP Internal Medicine; Referring Provider Internal Medicine; Visit Provider Internal Medicine
DX: I10 Essential (primary) hypertension (principal); E03.9 Hypothyroidism, unspecified
CPT/HCPCS: 36415; 80053; 84443; 85025

== ENCOUNTER 2022-05-28 08:38 | Inpatient (IN) | payer MEDICARE, OTHER, SELFPAY ==
--- NOTE | 2022-05-18 23:11 | PCM.HP.BLA ---
History and Physical History and Physical? Patient Name: Denisse Morel : 1955 From:? GISELLE VALDEZ PA-C? DATE OF SURGERY:? 05/28/2022 SCHEDULED PROCEDURE:? L4-5 and L5-S1 posterior lumbar interbody fusion, decompression, posterior spinal fusion with instrumentation and use of allograft HISTORY OF PRESENT ILLNESS: Preoperative history and physical exam was performed on May 18, 2022.? This is a 66-year-old female who is had ongoing pain for the past 1-2 years.? She denied any previous history of back injuries.? She has been treated under the care of Dr. Timbo Langley for episodic low back pain.? It radiates in the bilateral lower extremities.? Her pain is worse with activities and relieved with rest.? She has attempted nonoperative treatments including oral medications, physical therapy and previous injections.? After failing conservative measures and discussing all treatment options with Dr. Timbo Langley, the patient does wish to proceed with an L4-5 and L5-S1 posterior lumbar interbody fusion, decompression, posterior spinal fusion with instrumentation and use of allograft.? Patient has had previous MRI of the lumbar spine which did show moderate high-grade central canal stenosis L4-L5 and moderate neural foraminal narrowing bilaterally.? We are obtaining surgical clearance from the primary care physician Dr. John.? Patient has past medical history pertinent for hypertension, hypercholesterolemia, type 2 diabetes mellitus, restless leg syndrome, insomnia, and chronic obstructive pulmonary disease.? Currently she denies any recent chest pain, shortness of breath, fevers chills or recent infections. REVIEW OF SYSTEMS: Review Of Systems: Constitutional: Denies change in appetite, fever and weight change. Cardiovasular: Denies chest pain, heart murmur and irregular heartbeat. Respiratory: Reports cough, but denies pneumonia, shortness of breath, tuberculosis and wheezing. Gastrointestinal: Denies constipation, diarrhea, heartburn, nausea, rectal itching, bloody stools and vomiting. Genitourinary: Denies incontinence. Musculoskeletal: Denies leg swelling, pain, trouble walking and weakness. Skin: Denies Raynaud's, history of shingles and tattoo. Neurological: Reports numbness/tingling but denies ambulatory dysfunction, dizziness and tremor. Psychiatric: Reports stress, but denies anxiety and insomnia. Hematologic/Lymphatic: Denies anemia, bleeding/bruising tendency and past transfusion. Reviewed, no changes. PAST MEDICAL HISTORY: Advance Care Plan: No Advance Directives Effective Date: 02/10/2021 Past Medical History: Medical Problems: High Blood Pressure, Hypercholesterolemia, Thyroid Disease, Diabetes, Anxiety, Restless Leg Syndrome, Chronic Obstructive Pulmonary Disease (COPD), Insomnia Accidents: None Surgical Hx: Kidney Stones - (2019) [facility] D&C - (2006) Anesthesia Complications: None Assistive Devices: Glasses Reviewed and updated. SOCIAL HISTORY: Social History: Marital: .Occupation: Retired.Work Status: Retired.Hand Dominance: Right-handed. Personal Habits:? Cigarette Use: Former Cigarette Smoker.Smokeless Tobacco: Never Used Smokeless Tobacco.E-Cigarette Use: E-Cigarette Use.Alcohol: Occasionally.Drug Use: Currently uses Marijuana.Enjoy Exercising: Exercises 1-3 x/month. Reviewed and updated. VITALS: Ht: 60.1 Wt: 134lb Wt k.782 BMI: 26.1 BP: 118/62 Pulse: 80 Resp: 14 T: 97.4 T: 36.3C Pain Level: 5 O2SatR: 95 ALLERGIES: Sulfa? MEDICATIONS: Losartan Potassium 50 mg 1 by mouth every day, Amlodipine Besylate 5 mg 1 by mouth every day, Levothyroxine Sodium 75 mcg 1po qday, Xyzal? 1po qday, Mucinex 600 mg 1po qday, Flonase? inhale in each nostril QDAY, Ativan 2 mg 1po qday, Cyclobenzaprine HCL 10 mg po pRN, Metformin HCL 500 mg one tab PO twice daily PRE-OP EXAM:? General appearance:NORMAL? ? ? Other: Eyes: Conjunctivae and lids: NORMAL? Pupils: ERR Ears, Nose, Mouth, and Throat: NORMAL? Other: Inspection of lips, teeth and gums: NORMAL? ?Other: Neck: Examination of neck: no masses noted. Respiratory: Assessment of respiratory effort: NORMAL? ?Other: ?Auscultation of lungs: clear to auscultation no wheezes, rhonchi or rales. Cardiovascular:? Auscultation of heart: regular rate and rhythm, no murmurs, gallops or rubs. PHYSICAL EXAMINATION: Patient walks with a slight limping gait.? She has some mild tenderness to palpation of the lumbar spine in the paraspinal region.? She denies any recent bowel or bladder loss.? She has increased pain with trunk flexion and extension.? Negative seated bilateral straight leg raise IMAGING STUDIES: Previous lumbar x-rays reveal overall alignment with mild anterior listhesis of L4-L5.? There is degenerative changes at multiple levels with loss of disc height and disc osteophyte complex formation and facet arthrosis.? Degenerative changes of bilateral sacroiliac joints. Previous MRI on February 12, 2021 reveals moderate high-grade L4-L5 central canal stenosis with mild L3-L4 central canal stenosis.? There is moderate neural foraminal narrowing bilaterally at L2-L3, L3-L4, L4-L5, L5-S1.? Grade 1 anterolisthesis L4-L5 and L5-S1. IMPRESSION: 1.? Lumbar degenerative disc disease with central canal stenosis 2.? Hypertension 3.? Type 2 diabetes mellitus 4.? Hypercholesterolemia 5.? Insomnia 6.? Chronic obstructive pulmonary disease 7.? Restless leg syndrome PLAN: Dr. Timbo Langley did discuss and review with the patient all treatment options including surgical versus nonsurgical options.? Patient does wish to proceed with the above-stated procedure.? Potential risks, benefits, and complications of the procedure were discussed in detail including but not limited to , infection, nerve and blood vessel damage, persistent pain, numbness, tingling, paresthesias, blood clot, pulmonary embolism, and requirement for possible further surgery.? The patient expressed full understanding and has no further questions for the doctor.? Patient does agree to proceed with the above-stated procedure and has signed the surgery consent form. We discussed the current risks associated with COVID 19.? This does include the risk of exposure while in the hospital.? Patient was reassured local hospitals have low infection rates and are taking all necessary precautions to avoid exposure to patients.? In addition, we discussed strategies that can be used to help limit exposure including those that limit the patient's time in the hospital.? Also using strategies to limit the patient's need for continued inpatient services after being discharged from the hospital.? Patient was notified that we will need to comply with any screening or testing the hospital wishes to perform or that surgery may be delayed for any positive results. This dictation was created using voice recognition software. Phonetic and/or grammatical errors may exist. ___? I have re-examined the patient.? There are no clinical changes since date of exam. ___? See progress notes for changes. ___? Dictated on admission Date: ? ? ?Time: Signature:
--- NOTE | 2022-05-20 09:40 | EKG12_ITS ---
Test Reason : PRE OP Blood Pressure : / mmHG Vent. Rate : 070 BPM Atrial Rate : 070 BPM P-R Int : 148 ms QRS Dur : 086 ms QT Int : 394 ms P-R-T Axes : 069 047 074 degrees QTc Int : 425 ms Normal sinus rhythm Normal ECG Confirmed by BETH CORTEZ, CURTIS ([id number]), senior editor ANNETTE VILLANUEVA ([id number]) on 05/21/2022 10:06:30 AM Referred By: GREGORY Confirmed By:CURTIS CAMPOS MD
--- NOTE | 2022-05-20 09:50 | RAD_ITS ---
INDICATION: PREOP EXAMINATION/TECHNIQUE: X-RAY - XR Chest 2 Views COMPARISON: July 01, 2020. FINDINGS: LINES/DEVICES: None. LUNGS: No consolidation, edema or effusion. No pneumothorax. MEDIASTINUM AND CARDIOVASCULAR STRUCTURES: Cardiac silhouette not enlarged. Central airways and mediastinal contour are unremarkable. BONES AND SOFT TISSUES: Degenerative vertebral changes. RAD/Chest PA and Lateral IMPRESSION: No radiographic evidence of acute cardiopulmonary disease. Electronically Signed: Barber Pisano DO at 18:17 EST Reading Location ID and State: [facility] / [place] Tel [phone], Service support ,
[2022-05-20 10:38] LABS: Hematocrit 44.9 % (37-47); Hemoglobin 14.8 g/dL (12.0-15.0); Mean Corpuscular Hgb 30.2 pg (27.0-32.0); Mean Corpuscular Volume 91.6 fL (81-99); Mean Platelet Vol. 10.2 fl (6.2-12.0); Platelet Count 320 K/mm3 (150-450); RBC Distribution Width CV 12.5 % (11.6-14.6); RBC Distribution Width SD 41.8 fl (35.1-43.9); White Blood Count 7.8 K/mm3 (4.4-11.0)
[2022-05-20 10:45] LABS: Partial Thromboplast Time 27.8 Seconds (24.1-36.2); Prothrombin Time (Protime)PT. 12.8 SECONDS (11.7-14.9)
[2022-05-20 11:03] LABS: Hemoglobin A1c 5.9 % (3.8-5.6)
[2022-05-20 11:06] LABS: Anion Gap 11 (5-15); BUN 11 mg/dL (7-18); BUN/Creat Ratio 14.5 RATIO (10-20); Calcium,Total 9.2 mg/dL (8.5-10.1); Chloride 102 mmol/L (98-107); Creatinine, Serum 0.76 mg/dL (0.55-1.02); EST Glomerular Filtration Rate 81 mL/min (>60); Est Glom Filt Rate - Afr Amer 98 mL/min (>60); Glucose 110 mg/dL (74-106); Potassium 3.7 mmol/L (3.5-5.1); Sodium Level 140 mmol/L (136-145)
[2022-05-20 11:11] LABS: Thyroid Stim Hormone (TSH) 1.46 uIU/mL (0.358-3.74)
[2022-05-28] VITALS (12 sets, daily range): BP systolic 108–137; BP diastolic 65–76; PULSE 71–110; RESP 15–18; TEMP 35.9–36.8; O2SAT 92–100; BMI 26.2; BMI 26.3
[2022-05-28] MEDS: Lactated Ringers 1,000 ML 15 ML IV ×3 (08:00→14:24)
--- NOTE | 2022-05-28 08:15 | RAD_ITS ---
STUDY: X-RAY - LUMBAR SPINE REASON FOR EXAM: Female, 66 years old. L4-L5, L5-S1, POSTERIOR FUSION TECHNIQUE: 5 fluoroscopic guided view(s) of the lumbar spine were obtained. COMPARISON: None FINDINGS: 5 fluoroscopic guided views were obtained in the AP and lateral projections during an status post bilateral laminectomy and posterior fusion as well as disc spacer placement at L4-5 and L5-S1. . Orthopedic hardware noted in satisfactory position RAD/Lumbar Spine 2 or 3 Views IMPRESSION: Status post bilateral laminectomy and posterior fusion as well disc spacer placement at L4-5 and L5-S1. Electronically Signed: Timbo Vivas MD at 22:31 EST ,
--- NOTE | 2022-05-28 08:19 | OP.PCM_ITS ---
Problems Associated Problem List Diagnoses (1) Lumbar stenosis: Report of Operation Date of Procedure: 05/28/22 Pre-Operative Diagnosis: 1. Lumbar stenosis, L4-5, L5-S1 with spondylosis 2. Lumbar degenerative disc disease L4-5, L5-S1 Post-Operative Diagnosis: 1. Lumbar stenosis, L4-5, L5-S1 with spondylosis 2. Lumbar degenerative disc disease L4-5, L5-S1 Surgery/Procedure Performed:: 1. L4-5 posterior lumbar interbody fusion 2. L5-S1 posterior lumbar interbody fusion 3. Insertion of intervertebral biomechanical device x2 4. Structural allograft for spinal fusion 5. L4 bilateral laminectomies, foraminotomies, facetectomies, decompression of bilateral nerve roots 6. L5 bilateral laminectomies, foraminotomies, facetectomy, decompression of bilateral nerve root 7. S1 bilateral laminectomies, foraminotomies, facetectomies, decompression of bilateral nerve roots 8. L4-5 posterolateral fusion 9. L5-S1 posterolateral fusion 10. Pedicle screw fixation 11. Local allograft for spinal fusion 12. Neuro monitoring bilateral upper and bilateral lower extremities Description of Surgical Findings:: The patient is a 66-year-old female with intractable back and leg pain. Image studies confirm the above diagnoses. She has failed conservative treatments to include medication physical therapy and injections. The patient opted for operative intervention understanding the risks to include but not limited to infection, bleeding, damage to nerves arteries and veins, possibility of spinal fluid leak, nonunion, hardware failure, continued pain, need for further surgery, deep vein thrombosis, pulmonary embolism, heart attack, risk of stroke or The patient was identified in the preoperative holding area. There she received preoperative IV antibiotics Ancef and was then transferred to the operative suite. Once in the operative suite after general endotracheal anesthesia was established the patient was transferred to the [place] operating table in the prone position. All bony prominences were padded accordingly. The lumbar spine was prepped and draped in a sterile fashion. Abe hugger's were not turned on until the drapes were sealed with Ioban. A midline incision was made and taken to the lumbodorsal fascia. The fascia was divided and subperiosteal dissection was taken down to the level of the L4 and L5 transverse processes and sacral ala bilaterally. Deep retractors were placed. A bone scalpel was used to make cuts in the lamina and then a series of rongeurs and Kerrisons were used removing the spinous process and lamina of L4, L5 and S1. Facetectomies of greater than 50% were performed as well as foraminotomies decompressing the bilateral nerve roots. Given the severity of the stenosis I needed to perform wide bilateral laminectomies and near complete facetectomies in order to decompress the neural elements thus creating instability necessitating the fusion. The nerve roots and dura were identified and retracted medially. A knife was utilized to perform an annulotomy at L4-5. Endplate elevators, curettes, and pituitaries were used to remove disc material. Endplates were prepared with a rasp. An appropriate sized intervertebral peek cage device measuring 10 mm was packed with morselized cancellous allograft and impacted into position completing the posterior lumbar interbody fusion at L4-5. The nerve roots and dura were identified and retracted medially. A knife was utilized to perform an annulotomy at L5-S1. Endplate elevators, curettes, and pituitaries were utilized to remove disc material. Endplates were prepared with a rasp. An appropriate sized intervertebral peek cage device measuring 10 mm was packed with morselized cancellous allograft and impacted in position completing the posterior lumbar interbody fusion at L5-S1. I then proceeded with pedicle screw fixation. Starting points were found at the junction of the superior articular process and transverse processes of L4 and L5 and sacral ala bilaterally. A power bur was used for the starting points. Pedicle probes were placed bilaterally and then 6.5 x 50 mm screws were placed bilaterally at L4 and L5, 6.5 x 40 mm screws were placed bilaterally at S1. The screws were tested with intraoperative neurophysiologic monitoring and tested within normal limits. Connecting rods were then applied and secured with set screws. I then proceeded with a posterior lateral fusion. This was accomplished by decorticating the transverse processes and sacral ala bilaterally at L4, L5, and S1. This decorticated bone was then bridged with local autograft from the decompression as well as morselized cancellous allograft therefore completing the posterolateral fusion at L4-5 and L5-S1. The incision was then thoroughly irrigated. Tisseel was placed over the dura as a hemostatic agent. A deep drain was placed. The fascia was then closed with #1 Vicryl, subcutaneous with 2-0 Vicryl, skin with 2-0 nylon. Sterile dressing was applied with 4 x 4's ABD and tape. Sponge instrument and needle counts were correct at the end of the case. The patient was extubated and taken to the PACU without incident. Surgeon: Timbo Langley Type of Anesthesia: General Drains: Hemovac Estimated Blood Loss (mL): 300 cc Fluids Replaced: 1700 cc Grafts/Implants Used: Unified spine, Talos, Melvina Complications None
--- NOTE | 2022-05-28 08:19 | DS.PCM_ITS ---
Providers Date of Admission: 05/28/22 Primary Care Physician: Dr. Nicolle John, DO Reason For Visit: L4-5,L5-S1,POSTERIOR LUMBAR INTERBODY FUSION...... Medications at Discharge Home Medications amlodipine 5 mg tablet 5 mg PO QHS heart 07/01/20 levothyroxine 75 mcg tablet 75 mcg PO DAILY thyroid 07/01/20 lorazepam 0.5 mg tablet 0.5 mg PO QHS PRN Anxiety 07/01/20 losartan 50 mg tablet 50 mg PO QHS blood pressure 07/01/20 cyclobenzaprine 5 mg tablet 5 mg PO QHS PRN Spasms 05/19/22 metformin 500 mg tablet 500 mg PO BID 05/19/22 pramipexole 0.5 mg tablet 0.5 mg PO QHS PRN RESTLESS LEGS 05/19/22 hydrocodone-acetaminophen 5-325mg 5mg-325mg 1 tab PO Q6H 7 days #28 tabs 05/28/22 Hospital Course Operations - (L4-5, L5-S1 posterior lumbar interbody fusion, decompression, posterior spin al fusion with instrumentation, use of allograft) Summary of Care Provided Minutes Spent on Discharge: 15 Hospital Course: The patient is a 66-year-old female who underwent L4-5 and L5-S1 posterior lumbar interbody fusion, decompression, posterior spinal fusion with instrumentation, use of allograft on 05/28/2022. She was subsequently admitted. The hospitalist was consulted for medical management. She progressed well postoperatively. Her pain was controlled and she was mobilizing well. Her drain was pulled on postoperative day 1. No significant medical issues were reported. She was subsequently discharged home on 05/29/2022 to follow-up with Dr. Langley in 3 weeks. Physical Exam Const alert, oriented x3 and no apparent distress General Appearance: cooperative, comfortable and well kempt HEENT normocephalic and head/scalp atraumatic Eyes EOMs intact bilaterally and conjunctivae normal Neck full ROM General: normal visual inspection Chest inspection of chest normal and palpation of chest normal Resp normal respiratory effort and normal air movement Effort and Inspection: able to speak in complete sentences Cardio regular rate and peripheral pulses 2+ throughout GI soft to palpation, non-tender and non-distended Back/Spine Back/Spine Narrative: Dressing clean dry and intact. Incision well approximated with interrupted stover tures in place. No tenderness erythema drainage or fluctuance Cervical Spine: cervical ROM normal Thoracic Spine / Upper Back: normal to inspection Lumbar Spine / Lower Back: normal to inspection Extremity normal to inspection, full ROM, normal capillary refill, no clubbing, cyanosis or edema and no calf tenderness Skin no rashes or lesions noted General Skin Exam: no breakdown Neuro oriented x3, CN's II-XII intact bilaterally, moves all extremities, no focal motor deficits, no sensory deficits noted and deep tendon reflexes 2+ bilaterally Motor Exam: strength 5/5 throughout and muscle tone normal throughout ABG / Lab / Microbiology Data Result Diagrams: 05/20/22 10:03 05/20/22 10:03 D/C Instructions Discharge Diet: No restrictions Lifting Restricted to (Lbs): 5 Lifting Restrictions: No repetitive bending twisting or lifting greater than 5 pounds. Additional Activity Instructions: Wear back brace at all times. Okay to remove brace to sleep Call your doctor if your incision/area has: Continuous Slow Oozing, Sudden Increased Bleeding, Increased Pain/ Swelling, Increased Redness, Foul Smelling Discharge and Swelling at the incision site Call your doctor if you observe: Fever of 101 or Higher, Coldness, Increased Pain, Numbness or Tingling, Change in Color, Inability to urinate, Inability to have a bowel movement, Using more than 1 pad per hour, Shortness of breath, Dizziness, Fainting spells, Swelling in the ankles, Chest pain, Prolonged hiccupping, Increased palpitations (irregular heartbeat), Calf discomfort and Uncontrolled pain Cleanse incision/area with: Do not get Incision Wet and Keep Dressing Clean & Dry Additional Dressing/Incision Instructions: Change dressing daily with iodine gauze and tape. Use waterproof dressing to shower Please Follow Up With: Timbo Langley DO When: 3 weeks Meaningful Use Info Meaningful Use Diagnoses (Choose all that apply): None applicable Discharge Plan Admission Admit Date/Time: 05/28/22 08:38 Attending Provider: Timbo Langley Primary Care Provider: Nicolle John Consulting Providers: Lissette Paredes ; Mary Hinton Instructions Additional Instructions / Restrictions: 1. During your procedure, you received sedation through your IV. Please follow these instructions for the next 24 hours: Do not drive a motor vehicle, do not drink any alcoholic beverages, and do not sign any legal documents or make personal or business decisions. A responsible adult should stay with you at least 6 hours after the procedure. 2. Keep your surgical site/incision clean and the dressing dry and intact. You may use an ice pack at the surgical site to reduce any swelling or discomfort. 3. Monitor the incision site for any signs or symptoms of infection. Watch for redness, excessive swelling or drainage, or continued pain at the incision site after 3 days. Contact your physician immediately for a fever, chills or a temperature of 101.5? F or greater. 4. Take your medication exactly as prescribed by your physician. Do not attempt to wean yourself off any of your medications even though your pain is improving. This process needs to be carefully monitored by your doctor. Take any antibiotics prescribed exactly as directed and until they are gone. 5. Avoid stretching, bending, pulling, twisting or any sudden movements. Do not bend or twist at the waist. Wear back brace at all times. Okay to remove brace to sleep 6. No lifting greater than 5 pounds. 7. Do not operate a motor vehicle, equipment or a power tool while taking pain medication 8. Do not have any manipulation done by a chiropractor or any other physician without first consulting with the surgeon 9. Please contact our office if you are even scheduled for a CT scan or an MRI. 10. Please call us if you have any questions, problems or concerns. Discharge Orders/Prescriptions Prescriptions: New hydrocodone-acetaminophen 5-325 mg tablet 1 tab PO Q6H 7 Days Qty: 28 0RF Continued losartan 50 MG tablet 50 mg PO QHS amlodipine 5 MG tablet 5 mg PO QHS levothyroxine 75 MCG tablet 75 mcg PO DAILY lorazepam 0.5 MG tablet 0.5 mg PO QHS PRN (Reason: Anxiety) metformin 500 mg Tablet 500 mg PO BID pramipexole 0.5 mg Tablet 0.5 mg PO QHS PRN (Reason: RESTLESS LEGS) cyclobenzaprine 5 mg Tablet 5 mg PO QHS PRN (Reason: Spasms) Referrals / Follow Up: Timbo Langley DO [Med Staff - Active Staff] - Nicolle John DO [Primary Care Provider] - Disposition Disposition (needs filled in before D/C Order can be placed): Home, Self Care
--- NOTE | 2022-05-28 08:19 | PCM.PN.ORT ---
Subjective Subjective The patient was seen and examined postoperatively in the PACU. She is resting comfortably. Her pain is controlled. She denies any complaints including numbness tingling or weakness Objective Data Lab / Micro Data Result Diagrams: 05/20/22 10:03 05/20/22 10:03 Physical Exam Const alert, oriented x3 and no apparent distress General Appearance: cooperative and comfortable HEENT normocephalic and head/scalp atraumatic Eyes EOMs intact bilaterally and conjunctivae normal Neck full ROM General: normal visual inspection Chest inspection of chest normal and palpation of chest normal Resp normal respiratory effort and normal air movement Cardio regular rate, regular rhythm and peripheral pulses 2+ throughout GI soft to palpation, non-tender and non-distended Back/Spine Back/Spine Narrative: Dressing clean dry and intact. Drain in place and functioning with small amount of serosanguineous fluid present Cervical Spine: cervical ROM normal Thoracic Spine / Upper Back: normal to inspection Lumbar Spine / Lower Back: normal to inspection Extremity normal to inspection, full ROM, normal capillary refill, no clubbing, cyanosis or edema and no calf tenderness Skin no rashes or lesions noted General Skin Exam: no breakdown Neuro oriented x3, CN's II-XII intact bilaterally, moves all extremities, no focal motor deficits, no sensory deficits noted and deep tendon reflexes 2+ bilaterally Motor Exam: strength 5/5 throughout and muscle tone normal throughout Assessment & Plan Assessment/Plan (1) Lumbar stenosis: PLAN: Okay to admit to floor See orders Pain control and mobilization as tolerated Continue antibiotics while drain in place Discharge planning, likely home tomorrow
[2022-05-28 08:50] LABS: Bedside Glucose 120 mg/dL (74-106)
[2022-05-28] MEDS: Cefazolin 2 GM in 0.9% Normal Saline 100 ML IV (09:30)
[2022-05-28] MEDS: THROMBIN (RECOMBINANT) 20,000 UNIT VIAL 20000 UNIT TOPICAL (09:53)
[2022-05-28] MEDS: Heparin 10,000 UNITS/10 ML Vial 10000 UNITS (09:53)
[2022-05-28] MEDS: Ipratropium/Albuterol Sulfate 3 ML AMPUL.NEB INHALATION (14:17)
[2022-05-28 15:46] LABS: Bedside Glucose 181 mg/dL (74-106)
--- NOTE | 2022-05-28 16:36 | PCM.PN.HOSP ---
Reason for Visit Reason for Visit: Diagnoses Spinal stenosis, lumbar region without neurogenic claudication (05/28/22) Encounter for other preprocedural examination (05/28/22) Subjective Subjective The patient is a 66 y/o F w/ PMHx: Anxiety, Diabetes mellitus type II, COPD with former tobacco use transitioned to vaping w/ nicotine agent, HTN, HLD, RLS, Chronic lumbar back pain with lumbar stenosis with radiculopathy who presents to the [facility] on 05/28/22 for planned lumbar back surgery per Dr. Langley given ongoing pain, debility despite outpatient interventions/treatments/therapies. Patient operatively is sitting upright in her bedside chair, reports lower lumbar back pain at the site of incision with some aching and throbbing with radiation to her buttock and the back of her thighs rating the discomfort as 7 out of 10 in severity currently requesting medication. Patient has Mercado catheter in still. Patient denies fevers, chills, nausea, emesis, abdominal pain, chest pain or dyspnea. Objective Data Objective Data Vital Signs: Vital Signs Temp Pulse Resp BP Pulse Ox O2 Del Method O2 Flow Rate 97.3 F L 100 16 114/76 100 Nasal Cannula 3 05/28/22 15:29 05/28/22 15:29 05/28/22 15:29 05/28/22 15:29 05/28/22 15:29 05/28/22 16:19 05/28/22 16:19 Oxygen Flow Rate (L/min) 3 Oxygen Delivery Method Nasal Cannula Weight: 132 lb 4.438 oz Body Mass Index (BMI) 26.2 Intake & Output: Intake and Output for Last 24 Hours 05/26/22 05/27/22 05/28/22 23:59 23:59 23:59 Intake Total 1999 / 1999 Output Total 450 / 450 Balance 1550 / 1550 Lab / Micro Data Result Diagrams: 05/20/22 10:03 05/20/22 10:03 Labs: Laboratory Results - last 24 hr 05/28/22 08:19: POC Glucose 120 H 05/28/22 15:25: POC Glucose 181 H Physical Exam Narrative Physical Examination: General: Awake, alert, oriented x 3 and cooperative, seated upright in the medical surgical bedside chair, fatigued, uncomfortable appearing, reporting lumbar back discomfort 7 out of 10. Skin: Normal color, normal turgor, no icterus, no cyanosis except for incision with dressing in place with no drainage however she does have drain in place that has serosanguineous expected fluid output. HEENT: AT/NC, EOMI, PERRLA, mildly dry MM, no carotid bruits or JVD noted. Lungs: Clear to auscultation bilaterally, very decent effort especially given acute discomfort with recent back surgery, no rales, ronchi or wheezing. Heart: Currently mildly tachycardic with rate rhythm; no gallop, rub audible. Abdomen: Soft, overweight, NTTP, ND, hyperactive BS, no obvious HSM. Extremities: No cyanosis, clubbing, or edema. Neurological: Patient awake, alert, oriented as noted, cognitive function intact; pupils equally reactive to light and accommodation, cranial nerves II-XII grossly normal, moving all 4 extremities except extremely limited given recent OR with lumbar back surgery, no focal deficits, strength moderately to severely global decrease secondary to recent intervention. Psychiatric: Affect appears fatigued, uncomfortable, no acute evidence of depressive or anxiety feelings. Assessment & Plan Assessment/Plan (1) Lumbar stenosis: PLAN: Plan The patient is a 66 y/o F w/ PMHx: Anxiety, Diabetes mellitus type II, COPD with former tobacco use transitioned to vaping w/ nicotine agent, HTN, HLD, RLS, Chronic lumbar back pain with lumbar stenosis with radiculopathy who presents to the [facility] on 05/28/22 for planned lumbar back surgery per Dr. Langley given ongoing pain, debility despite outpatient interventions/treatments/therapies. #1. Chronic lumbar back pain with lumbar stenosis with radiculopathy: Failed conservative therapies and treatments, admitted per Dr. Jain for planned 05/28/2022 L4-5 posterior lumbar interbody fusion, L5-S1 posterior lumbar interbody fusion, insertion intervertebral biomechanical device x2, structural allograft for spinal fusion, L4/L5/S1 bilateral laminectomies, foraminotomies, fasciotomies, decompression of nerve roots bilaterally, L4-5 posterior lateral fusion, L5-S1 posterior lateral fusion, pedicle screw fixation, local allograft for spinal fusion with neuro monitoring of bilateral upper and lower extremities, post-operative pain management, bowel regimen, DVT Prophylaxis, PT/OT/CM per Orthopedic surgery discretion. #2. Diabetes mellitus type II: Hold oral home regimen, continue home insulin regimen, ADA diet, accu checks w/ ISS. #3. Hypertension: Continue home regimen including amlodipine, losartan, PRN hydralazine. #4. Hyperlipidemia: Per current list patient not on statin therapy, defer to outpatient. #5. Hypothyroidism: We will continue patient home levothyroxine regimen. #6. Tobacco Abuse via Vaping, prior Tobacco cigarette use history: Encouraged continued cigarette tobacco cessation but strongly encourage vaping cessation also, inpatient consultation per RT, discussed nicotine involvement with impairment of wound healing and she is amenable to deferring nicotine replacement at this time #7. Chronic anxiety: We will continue patient home low-dose Ativan regimen however would benefit from consideration alternate regimen, potentially SSRI #8. Restless leg syndrome: We will continue patient on Mirapex regimen. #9. Chronic COPD: Not on any chronic routine inhalers, prior history of cigarette tobacco use unfortunately transition to nicotine vaping product, encouraging cessation PRN albuterol, HOB, IS parameters. #10. DVT prophylaxis: SCDs, chemoprophylaxis per surgery discretion given recent OR. Admission Evaluation Time spent evaluating chart, patient history, patient evaluation, care planning and discussion with specialists: 50 minutes. Charges/Coding Visit Charges Inpatient E&M: 29016 Subs Hosp L3
[2022-05-28] MEDS: Acetaminophen 500 MG Tablet 1000 MG PO ×2 (17:10→21:15)
[2022-05-28] MEDS: oxyCODONE 5 MG Tablet PO ×2 (17:15→21:15)
[2022-05-28] MEDS: Cefazolin 1 GM/50 ML BAG IV (17:26)
[2022-05-28] MEDS: Lactated Ringers 1,000 ML 100 ML IV (18:44)
[2022-05-28] MEDS: Losartan Potassium 50 MG Tablet PO (21:15)
[2022-05-28] MEDS: amLODIPine 5 MG Tablet PO (21:15)
[2022-05-28 21:35] LABS: Bedside Glucose 155 mg/dL (74-106)
[2022-05-29] MEDS: Cefazolin 1 GM/50 ML BAG IV (00:46)
[2022-05-29] MEDS: oxyCODONE 5 MG Tablet PO ×2 (01:24→05:24)
[2022-05-29 02:00] VITALS: BP 116/66; PULSE 68; RESP 14; TEMP 36.6; O2SAT 97
[2022-05-29] MEDS: Levothyroxine 75 MCG Tablet PO (05:23)
[2022-05-29] MEDS: Acetaminophen 500 MG Tablet 1000 MG PO (05:23)
[2022-05-29 06:06] LABS: Bedside Glucose 137 mg/dL (74-106)
--- NOTE | 2022-05-29 07:08 | PN.HOSP_ITS ---
Reason for Visit Reason for Visit: Diagnoses Spinal stenosis, lumbar region without neurogenic claudication (05/28/22) Subjective Subjective Mrs. Forte is a 66-year-old white female who presented electively to [facility] on 05/28/2022 for multilevel lumbar surgery to address lumbar stenosis at L4-L5, L5-S1 with spondylosis as well as lumbar degenerative disc disease at L4-L5 and L5-S1. She had evidently had issues with chronic lumbar pain with lumbar stenosis and radiculopathy. She had had multiple outpatient conservative interventions and therapies and failed conservative measures. She was having some pain and discomfort postoperatively that she rated 7 out of 10 yesterday however she was sitting upright at the bedside in chair. Her past medical history includes anxiety, diabetes type 2, COPD, hypertension, hyperlipidemia, and restless leg syndrome along with tobacco abuse which includes vaping at this point. Patient states she is feeling well. Getting ready to go to the bathroom. Ambulating independently with a walker. Plan is for discharge today. Objective Data Objective Data Vital Signs: Vital Signs Temp Pulse Resp BP Pulse Ox O2 Del Method O2 Flow Rate 97.9 F 68 14 116/66 97 Room Air 2 05/29/22 02:00 05/29/22 02:00 05/29/22 02:00 05/29/22 02:00 05/29/22 02:00 05/29/22 02:00 05/28/22 20:27 Oxygen Flow Rate (L/min) 2 Oxygen Delivery Method Room Air Weight: 60 kg Body Mass Index (BMI) 26.3 Intake & Output: Intake and Output for Last 24 Hours 05/27/22 05/28/22 05/29/22 23:59 23:59 23:59 Intake Total 2160 / 2400 2668.33 / 2668.33 Output Total 680 / 1070 800 / 800 Balance 1480 / 1330 1868.33 / 1868.33 Lab / Micro Data Result Diagrams: 05/20/22 10:03 05/20/22 10:03 Labs: Laboratory Results - last 24 hr 05/28/22 08:19: POC Glucose 120 H 05/28/22 15:25: POC Glucose 181 H 05/28/22 21:14: POC Glucose 155 H 05/29/22 05:19: POC Glucose 137 H Radiography Diagnostic Testing: Radiology Impression Lumbar Spine X-Ray 05/28/22 08:15 IMPRESSION: Status post bilateral laminectomy and posterior fusion as well disc spacer placement at L4-5 and L5-S1. Electronically Signed: Timbo Vivas MD at 22:31 EST , Physical Exam Const alert, oriented x3, no apparent distress, average body habitus and well nourished Constitutional Narrative: Upper middle-aged white female ambulating with a wheeled walker independently to the bathroom, at bedside Neuro oriented x3, moves all extremities and no focal motor deficits Speech: speech normal Assessment & Plan Assessment/Plan (1) Lumbar stenosis: PLAN: Plan Chronic low back pain secondary to multilevel lumbar stenosis with radiculopathy -Failed conservative management -Postop day 1 L4-5 posterior lumbar interbody fusion, L5-S1 posterior lumbar interbody fusion, insertion intervertebral biomechanical device x2, structural a llograft for spinal fusion, L4/L5/S1 bilateral laminectomies, foraminotomies, fasciotomies, decompression of nerve roots bilaterally, L4-5 posterior lateral fusion, L5-S1 posterior lateral fusion, pedicle screw fixation, local allograft for spinal fusion with neuro monitoring of bilateral upper and lower extremities -Postoperative pain management per primary service -Continue bowel regimen -DVT prophylaxis per primary service -PT/OT consultation DM-2 -Continue to hold home oral regimen and reinitiate at discharge -Sliding scale insulin -Carb controlled diet -Accu-Cheks Hypertension -Continue home regimen including amlodipine and losartan -As needed hydralazine available for elevated blood pressures Hyperlipidemia -Patient does not take a statin at baseline -Defer to primary care physician Hypothyroidism -Continue home levothyroxine Restless leg syndrome -Continue home Mirapex Anxiety -continue nightly as needed lorazepam Tobacco abuse -Patient with history of cigarette use now vaping -Recommend cessation -Nicotine replacement if needed -Patient was counseled that tobacco abuse in any form will impair healing and success of lumbar surgery DVT prophylaxis -SCDs -Chemoprophylaxis per primary service Disposition: -Patient is stable for discharge medically Charges/Coding Visit Charges Inpatient E&M: 91124 Subs Hosp L1
[2022-05-29 08:00] VITALS: BP 120/55; PULSE 76; RESP 18; TEMP 36.9; O2SAT 94
--- NOTE | 2022-05-29 09:45 | CASEMGMT ---
KALLI HALL DC Planning Assessment: Face to face with pt for initial transition planning/care coordination. KALLI HALL introduced self and role at [facility], pt voices understanding. Pt alert, sitting up in chair, and agreeable to participating in assessment with spouse present. Admitting Dx: lumbar fusion L4-5, L5-S1 PCP: Alvaro Specialists: Korin Living Situation: Pt lives with her spouse, 23yo granddaughter and 2yo great grandchild in a single story home. Pt states she is independent with all ADLs including self care and household tasks prior to OR. Pt's spouse states he will assist pt as needed with all needs upon discharge home. DME: Will borrow a walker to use at home Plan: Pt and spouse preparing to discharge to home on this date. Pt states she was able to ambulate this AM without difficulty. Pt and spouse deny any needs or concerns at this time. Noted therapy did not recommend any ongoing therapy upon discharge. Samina Gee RN CM
== END 2022-05-29 10:05 | disposition home or self-care (01) | DRG 455 ==
LOC: SDC 11:04 → MS3 11:04
PROVIDERS: Anesthesiology; Admitting Provider Orthopaedic Surgery; PCP Internal Medicine; Referring Provider Orthopaedic Surgery; Visit Provider Orthopaedic Surgery
PROC: 0SG10AJ Fusion of 2 or more Lumbar Vertebral Joints with Interbody Fusion Device, Posterior Approach, Anterior Column, Open Approach (ICD-10-PCS; CPT 22630; principal; 2022-05-28 08:45)
DX: M48.062 Spinal stenosis, lumbar region with neurogenic claudication (principal); E03.9 Hypothyroidism, unspecified; E11.9 Type 2 diabetes mellitus without complications; J44.9 Chronic obstructive pulmonary disease, unspecified; M47.26 Other spondylosis with radiculopathy, lumbar region; E78.00 Pure hypercholesterolemia, unspecified; M43.16 Spondylolisthesis, lumbar region; M51.36 Other intervertebral disc degeneration, lumbar region; I10 Essential (primary) hypertension; G25.81 Restless legs syndrome; F41.9 Anxiety disorder, unspecified; M51.16 Intervertebral disc disorders with radiculopathy, lumbar region; F17.290 Nicotine dependence, other tobacco product, uncomplicated; G89.29 Other chronic pain; G47.00 Insomnia, unspecified; Z98.1 Arthrodesis status; Z79.84 Long term (current) use of oral hypoglycemic drugs; Z79.899 Other long term (current) drug therapy
CPT/HCPCS: 36415; 71046; 72100; 76000; 80048; 82962; 83036; 84443; 85027; 85610; 85730; 93005; 94640; 94668; 97162; 97530; 99252; C1713; J7120; G0463; J2405

== ENCOUNTER 2022-12-28 18:33 | Emergency (ER) | payer MEDICARE, OTHER, SELFPAY ==
[2022-12-28 18:34] VITALS: BP 173/70; PULSE 84; RESP 18; TEMP 36.8; O2SAT 99; BMI 26.3
[2022-12-28 20:35] VITALS: BP 175/81; PULSE 76; RESP 16; O2SAT 99
--- NOTE | 2022-12-28 20:37 | EKG12_ITS ---
Test Reason : DYSRHYTHMIA Blood Pressure : / mmHG Vent. Rate : 077 BPM Atrial Rate : 077 BPM P-R Int : 124 ms QRS Dur : 092 ms QT Int : 398 ms P-R-T Axes : 058 062 051 degrees QTc Int : 450 ms Normal sinus rhythm Normal ECG Confirmed by BETH CORTEZ, CURTIS ([id number]), staff editor TOMAS COHEN ([id number]) on 12/31/2022 1:56:39 PM Referred By: Confirmed By:CURTIS CAMPOS MD
[2022-12-28 20:41] VITALS: BP 175/81; PULSE 73; RESP 16; TEMP 36.1; O2SAT 97; BMI 26.3
[2022-12-28 20:52] LABS: Absolute Lymphocyte Count 2.67 X10^3/uL (0.83-4.51); Absolute Neutrophil Count 7.7 X10^3/uL (2.0-7.7); Basophil# 0.12 X10^3/uL; Eosinophil# 0.07 X10^3/uL; Eosinophils% 0.6 % (0-5); Hematocrit 42.8 % (37-47); Lymphocyte # 2.67 X10^3/ul (0.83-4.51); Mean Corp Hgb Conc 32.7 g/dL (32-36); Mean Corpuscular Hgb 29.2 pg (27.0-32.0); Mean Corpuscular Volume 89.4 fL (81-99); Mean Platelet Vol. 9.2 fl (6.2-12.0); Monocyte# 1.08 X10^3/uL; Monocyte% 9.3 % (0-10); NRBC Flagged by Analyzer 0 % (0-5); Neutrophil # 7.66 X10^3/uL (2.7-7.7); Neutrophil % 65.8 % (47-70); Platelet Count 455 K/mm3 (150-450); RBC Distribution Width CV 13.1 % (11.6-14.6); RBC Distribution Width SD 42.8 fl (35.1-43.9); Red Blood Count 4.79 M/mm3 (4.2-5.4); White Blood Count 11.6 K/mm3 (4.4-11.0)
--- NOTE | 2022-12-28 21:17 | EX.ED.DYSGE1 ---
HPI History of Present Illness Chief Complaint: Abd Pain Informant: patient and family Narrative Narrative: 67-year-old female presenting to the emergency department chief complaint of abdominal pain possible appendicitis. Patient states that about 2 weeks ago she developed pain in the lower abdomen into the back. After about 1 week she saw her primary care and was started on Cipro and Flagyl for presumed diverticulitis. Today she had a CT scan due to continued pain is concerning for inflammatory changes around the cecum/appendicitis. No appendicolith was noted. The patient has not had fever. She has had regular bowel movements. She has had decreased appetite but did have a couple [employer] chicken strips and curly fries at 1700 hrs. today. She is treated for hypertension hyperlipidemia. No personal history of coronary artery disease. She is a former smoker now vaping. [facility] Medical History (Updated 12/28/22 @ 21:[address] Kenneth Roberts, ) Alcohol use Anxiety Arthritis Back pain COPD (chronic obstructive pulmonary disease) Diabetes Former smoker History of pain when walking History of steroid therapy History of stress test Hypertension Leg cramps Migraine headache Post-menopausal Restless legs Thyroid disease Vapes nicotine containing substance Wears glasses Home Medications amlodipine 5 mg tablet 5 mg PO QHS heart 07/01/20 [History Last Taken 05/27/22] levothyroxine 75 mcg tablet 75 mcg PO DAILY thyroid 07/01/20 [History Last Taken 05/28/22] lorazepam 0.5 mg tablet 0.5 mg PO QHS PRN Anxiety 07/01/20 [History Last Taken 05/27/22] losartan 50 mg tablet 50 mg PO QHS blood pressure 07/01/20 [History Last Taken 05/27/22] cyclobenzaprine 5 mg tablet 5 mg PO QHS PRN Spasms 05/19/22 [History Last Taken 05/27/22] metformin 500 mg tablet 500 mg PO BID 05/19/22 [History Last Taken 05/27/22] pramipexole 0.5 mg tablet 0.5 mg PO QHS PRN RESTLESS LEGS 05/19/22 [History Last Taken 05/27/22] amoxicillin 875 mg-potassium clavulanate 125 mg tablet 1 tab PO BID #28 tabs 12/28/22 [Rx Last Taken Unknown] Allergy/AdvReac Type Severity Reaction Status Date / Time Sulfa (Sulfonamide Allergy Anaphylaxis Verified 12/28/22 18:34 Antibiotics) Surgical History (Updated 12/28/22 @ 21:[address] Lizzette Messer MD) History of lumbar fusion Hx of lithotripsy Social History Smoking Status: Current every day smoker tobacco type: e-cigarettes ROS ROS ED Constitutional Constitutional ED: Denies chills or weight loss Eyes Eyes: Denies change in vision or diplopia ENT ENT ED: Denies ear pain, rhinorrhea or sore throat Cardiovascular Cardiovascular: Denies chest pain, orthopnea, palpitations or racing heartbeat Respiratory/Chest Respiratory/Chest: Denies cough, dyspnea or orthopnea Gastrointestinal Gastrointestinal: Reports abdominal pain and nausea; Denies diarrhea or vomiting Genitourinary Genitourinary ED: Denies dysuria, hematuria or urinary frequency Musculoskeletal Musculoskeletal: Denies arthralgias or myalgias Integumentary Denies abscess or rash Neurologic Neurologic: Denies headache(s) or weakness Psychiatric Psychiatric: Denies anxiety, depression, suicidal ideation or suicidal thoughts Endocrine Endocrinology: Denies polydipsia, polyphagia or polyuria Allergic/Immunologic Allergic/Immunologic ED: Denies mouth swelling, tongue swelling or urticaria EXAM Physical Exam Const Vital Signs: 12/28/22 18:34 12/28/22 20:35 12/28/22 20:41 Temperature 98.2 F 96.9 F L Temperature Source Temporal Temporal Pulse Rate 84 76 73 Respiratory Rate 18 16 16 Blood Pressure 173/70 H 175/81 H 175/81 H Blood Pressure Mean 104 112 112 Blood Pressure Source Monitor Blood Pressure Position Semi-Fowlers Blood Pressure Location Left Arm Pulse Ox 99 99 97 Oxygen Delivery Method Room Air Positive well nourished and well developed General Appearance ED: well developed HEENT Reports normocephalic, head/scalp atraumatic and moist mucous membranes Eyes PERRL and EOMs intact bilaterally Neck no lymphadenopathy, supple and no JVD Resp normal respiratory effort and clear to auscultation bilaterally Cardio regular rate, regular rhythm and no murmurs GI normal to inspection, nondistended, normoactive bowel sounds Auscultation: normoactive bowel sounds Palpation: soft and tender LLQ and suprapubic; Negative for guarding Back/Spine no CVA tenderness and normal ROM Extremity normal to inspection General Extremety ED: Negative for edema General Extremity: Negative for edema Neuro oriented x3 and CN's II-XII intact bilaterally Sensorium / Orientation: alert Motor Exam: strength 5/5 throughout Psych mental status grossly normal Mood & Affect: Negative for depressed or tearful Skin no rashes or lesions noted and no wounds MDM MDM MDM Narrative Medical decision making narrative: White count elevated 11.6. After speaking with the patient and doing a physical exam I did review the CT. I also discussed the case with our on-call surgeon Dr. Messer. She will be in to evaluate the patient. After surgical evaluation is felt the patient should continue antibiotics. She will be given a dose of Zosyn here in the emergency department followed by outpatient Augmentin and just to follow-up with general surgery in the next 1 to 2 weeks return if worsening or concerns. Patient understands the plan set forth by surgery. Lab Data Attestation: I reviewed the patient's lab results. Labs: Laboratory Results - last 24 hr 12/28/22 20:45 WBC 11.6 H RBC 4.79 Hgb 14.0 Hct 42.8 MCV 89.4 MCH 29.2 MCHC 32.7 RDW Std Deviation 42.8 RDW Coeff of Trixie 13.1 Plt Count 455 H MPV 9.2 Immature Gran % (Auto) 0.300 Neut % (Auto) 65.8 Lymph % (Auto) 23.0 [place] % (Auto) 9.3 Eos % (Auto) 0.6 Baso % (Auto) 1.0 Absolute Neuts (auto) 7.7 Absolute Lymphs (auto) 2.67 Nucleated RBC % 0 Sodium 140 Potassium 3.4 L Chloride 106 Carbon Dioxide 25.0 Anion Gap 9 BUN 10 Creatinine 0.89 Estim Creat Clear Calc 57.27 Est GFR (MDRD) Af Amer 82 Est GFR (MDRD) Non-Af 67 BUN/Creatinine Ratio 11.3 Glucose 139 H Calcium 9.1 Total Bilirubin 0.20 AST 11 L ALT 15 Alkaline Phosphatase 74 Total Protein 8.0 Albumin 3.8 Globulin 4.2 Albumin/Globulin Ratio 0.9 EKG Initial EKG: Attestation: I personally reviewed and interpreted this EKG as follows: Interpretation: Sinus Rhythm Comments: Normal sinus rhythm with a ventricular rate of 77 bpm. No concerning features of ACS noted. Management Discussion w/another healthcare provider: Other (Surgeon) Discharge Plan Triage Chief Complaint: Abd Pain ED Provider: Kenneth Roberts Dx/Rx/DC Orders Clinical Impression: Abdominal pain, Acute appendicitis Prescriptions: New amoxicillin-pot clavulanate 875-125 mg tablet 1 tab PO BID Qty: 28 0RF Discontinued metronidazole 500 mg tablet 500 mg PO Q8H Patient Comments: TAKE 1 TABLET BY MOUTH EVERY 8 HOURS ciprofloxacin HCl 500 mg tablet 500 mg PO Q12H Patient Comments: TAKE 1 TABLET BY MOUTH EVERY 12 HOURS No Action losartan 50 MG tablet 50 mg PO QHS amlodipine 5 MG tablet 5 mg PO QHS levothyroxine 75 MCG tablet 75 mcg PO DAILY lorazepam 0.5 MG tablet 0.5 mg PO QHS PRN (Reason: Anxiety) metformin 500 mg Tablet 500 mg PO BID pramipexole 0.5 mg Tablet 0.5 mg PO QHS PRN (Reason: RESTLESS LEGS) cyclobenzaprine 5 mg Tablet 5 mg PO QHS PRN (Reason: Spasms) Primary Care Provider: Nicolle John Referrals: Nicolle John DO [Primary Care Provider] - Lizzette Messer MD [Med Staff - Active Staff] - 1-2 Weeks Disposition Disposition: Home, Self Care
[2022-12-28 21:18] LABS: ALB/GLOB Ratio 0.9 RATIO (0.9-2.4); AST(SGOT) 11 U/L (15-37); Alanine Aminotransfer ALT/SGPT 15 U/L (13-56); Albumin, Serum 3.8 g/dL (3.2-5.0); Alkaline Phosphatase 74 U/L (45-117); Anion Gap 9 (5-15); BUN 10 mg/dL (7-18); BUN/Creat Ratio 11.3 RATIO (10-20); Calcium,Total 9.1 mg/dL (8.5-10.1); Chloride 106 mmol/L (98-107); Creatinine, Serum 0.89 mg/dL (0.55-1.02); EST Glomerular Filtration Rate 67 mL/min (>60); Est Glom Filt Rate - Afr Amer 82 mL/min (>60); Estimated Creatinine Clearance 57.27 ml/min; Globulin 4.2 g/dL (2.2-4.2); Glucose 139 mg/dL (74-106); Potassium 3.4 mmol/L (3.5-5.1); Sodium Level 140 mmol/L (136-145)
--- NOTE | 2022-12-28 21:26 | CON.PCM.SX_ITS ---
Assessment & Plan Assessment/Plan (1) Appendicitis: (2) Malrotation of colon: PLAN: Plan Patient has been on antibiotics per PCP for about a week Cipro/Flagyl. The patient has been treated nonoperatively as patient has malrotation of the colon and her left lower quadrant pain was actually appendicitis. Currently patient states she has a normal appetite yesterday and today is able to eat [employer] just at 5 PM today. Discussed with patient would continue nonoperative treatment of appendicitis currently with antibiotics as her pain has not been improving and her appetite has come back along with no nausea no vomiting. We will plan for Zosyn 3.375 g IV x1 in the ER and send patient home with 2 weeks of Augmentin. We will have patient follow-up in office prior to the end of her Augmentin likely due to repeat CT abdomen pelvis at that time. Discussed with patient that in the future we could possibly do an interval appendectomy as well. Personally reviewed CT abdomen pelvis. Patient does not have any evidence of diverticulosis I was able to see this if she does have left lower quadrant pain again likely this will be due to her appendix. Patient is agreeable plan. Lizzette Messer M.D. Pager: [phone] [facility] [address] [place] [address], [facility], [address] [place] [address] Office: [phone] HPI Consult Data Date of Consult: 12/28/22 HPI Narrative HPI Narrative: OSMAN SAL, is a 67 F who presents to the ER after having outpatient CT abdomen pelvis which called possible appendicitis. Patient states 2 weeks ago started having lower abdominal pain had some nausea did not have any vomiting but was not eating much that week was able to get into her PCPs office after about a week. Patient did get Cipro and Flagyl p.o. as I thought the left lower quadrant pain could be diverticulitis-as patient was not acutely aware of her malrotation of the colon. Patient states that her appetite came back yesterday and was eating normally and today she was able to eat normally as well and had [employer] at 5 PM patient denies any nausea or vomiting. Patient white blood cell count in the ER was 11.[address] abdomen pelvis was consistent with acute appendicitis with inflammation at the cecum. No obvious abscess or appendicolith seen per report or per my read. Patient is never had any abdominal surgeries. Patient's never had a colonoscopy. [facility] Medical History (Updated 12/28/22 @ 21:[address] Lizzette Messer MD) Alcohol use Anxiety Arthritis Back pain COPD (chronic obstructive pulmonary disease) Diabetes Former smoker History of pain when walking History of steroid therapy History of stress test Hypertension Leg cramps Migraine headache Post-menopausal Restless legs Thyroid disease Vapes nicotine containing substance Wears glasses Home Medications amlodipine 5 mg tablet 5 mg PO QHS heart 07/01/20 [History Last Taken 05/27/22] levothyroxine 75 mcg tablet 75 mcg PO DAILY thyroid 07/01/20 [History Last Taken 05/28/22] lorazepam 0.5 mg tablet 0.5 mg PO QHS PRN Anxiety 07/01/20 [History Last Taken 05/27/22] losartan 50 mg tablet 50 mg PO QHS blood pressure 07/01/20 [History Last Taken 05/27/22] cyclobenzaprine 5 mg tablet 5 mg PO QHS PRN Spasms 05/19/22 [History Last Taken 05/27/22] metformin 500 mg tablet 500 mg PO BID 05/19/22 [History Last Taken 05/27/22] pramipexole 0.5 mg tablet 0.5 mg PO QHS PRN RESTLESS LEGS 05/19/22 [History Last Taken 05/27/22] amoxicillin 875 mg-potassium clavulanate 125 mg tablet 1 tab PO BID #28 tabs 12/28/22 [Rx Last Taken Unknown] Allergy/AdvReac Type Severity Reaction Status Date / Time Sulfa (Sulfonamide Allergy Anaphylaxis Verified 12/28/22 18:34 Antibiotics) Surgical History (Updated 12/28/22 @ 21:[address] Lizzette Messer MD) History of lumbar fusion Hx of lithotripsy Social History Smoking Status: Current every day smoker tobacco type: e-cigarettes ROS Constitutional Constitutional: Denies anorexia or fever(s) Eyes Eyes: Denies blurry vision ENT HEENT: Denies dysphagia Cardiovascular Cardiovascular: Denies chest pain Respiratory/Chest Respiratory/Chest: Denies cough Gastrointestinal Gastrointestinal: Reports abdominal pain and bloating; Denies dysphagia, nausea or vomiting Genitourinary Genitourinary: Denies dysuria Musculoskeletal Musculoskeletal: Denies joint swelling Integumentary Integumentary: Denies rash Neurologic Neurologic: Denies focal weakness Psychiatric Psychiatric: Denies anxiety or depression Endocrine Endocrinology: Denies palpitations Hematologic/Lymphatic Hematologic/Lymphatic: Denies easy bleeding Physical Exam Const alert, oriented x3 and no apparent distress HEENT normocephalic and head/scalp atraumatic Resp normal respiratory effort Cardio regular rate GI soft to palpation; Negative for non-distended Palpation: tender LLQ (pt has malrotation of the colon); Negative for guarding Extremity no clubbing, cyanosis or edema Neuro CN's II-XII intact bilaterally Psych mental status grossly normal Lab / Micro Data 12/28/22 20:45 12/28/22 20:45 Labs: Laboratory Results - last 24 hr 12/28/22 20:45: WBC 11.6 H, RBC 4.79, Hgb 14.0, Hct 42.8, MCV 89.4, MCH 29.2, MCHC 32.7, RDW Std Deviation 42.8, RDW Coeff of Trixie 13.1, Plt Count 455 H, MPV 9.2, Immature Gran % (Auto) 0.300, Neut % (Auto) 65.8, Lymph % (Auto) 23.0, [place] % (Auto) 9.3, Eos % (Auto) 0.6, Baso % (Auto) 1.0, Absolute Neuts (auto) 7.7, Absolute Lymphs (auto) 2.67, Nucleated RBC % 0, Sodium 140, Potassium 3.4 L, Chloride 106, Carbon Dioxide 25.0, Anion Gap 9, BUN 10, Creatinine 0.89, Estim Creat Clear Calc 57.27, Est GFR (MDRD) Af Amer 82, Est GFR (MDRD) Non-Af 67, BUN/Creatinine Ratio 11.3, Glucose 139 H, Calcium 9.1, Total Bilirubin 0.20, AST 11 L, ALT 15, Alkaline Phosphatase 74, Total Protein 8.0, Albumin 3.8, Globulin 4.2, Albumin/Globulin Ratio 0.9 Charges/Coding Visit Charges Office Visits / Consults: [id number] OP Consult L5
[2022-12-28 21:53] VITALS: BP 167/81; PULSE 82; RESP 16; TEMP 36.1
[2022-12-28] MEDS: Piperacil/Tazobactam 3.375 GM in 0.9% Normal Saline (50mL MB+) 50 ML IV (21:56)
== END 2022-12-28 22:21 | disposition home or self-care (01) ==
PROVIDERS: Emergency Provider Emergency Medicine; PCP Internal Medicine; Visit Provider Emergency Medicine
DX: R10.30 Lower abdominal pain, unspecified (principal); E11.9 Type 2 diabetes mellitus without complications; K35.80 Unspecified acute appendicitis; E07.9 Disorder of thyroid, unspecified; I10 Essential (primary) hypertension; F17.290 Nicotine dependence, other tobacco product, uncomplicated; Z79.899 Other long term (current) drug therapy; Z79.84 Long term (current) use of oral hypoglycemic drugs
CPT/HCPCS: 74177; 80053; 85025; 85027; 85652; 86140; 93005; 96365; 99283; J7030; Q9967; A4216

== ENCOUNTER → 2022-12-28 | Outpatient (CLI) | payer MEDICARE, OTHER, SELFPAY ==
--- NOTE | 2022-12-28 14:58 | CT_ITS ---
STUDY: CT ABDOMEN AND PELVIS WITH CONTRAST REASON FOR EXAM: Female, 67 years old. STAT - lower abdominal pain -- STAT - lower abdominal pain RADIATION DOSAGE (If Supplied By Facility): CTDIvol = ( 11.82 ) mGy, DLP = ( 572.18 ) mGycm TECHNIQUE: Transaxial images were obtained from the dome of the diaphragm to the symphysis pubis without oral contrast. IV 100mL Isovue-300 was administered. Sagittal and coronal images were reconstructed. Individualized dose optimization techniques were used for this CT. COMPARISON: None. FINDINGS: The visualized lung bases are unremarkable. The visualized portions of the heart are within normal limits. Normal liver. Cholelithiasis. No significant dilatation of the extrahepatic biliary system. Normal spleen. Normal pancreas. Normal bilateral adrenal glands. 2.4 cm upper pole cyst of the right kidney. 1.4 cm cyst in the left kidney. Normal visualized stomach. 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 There is inflammation at the cecal area possibly related to appendicitis. Normal abdominal aorta. Normal inferior vena cava. Normal retroperitoneum. Normal urinary bladder. 2.4 cm left adnexal cystic lesion. Normal abdominal wall. Status laminectomy at L4 and L5 with surgical fusion of L4-S1. CT/Abdomen/Pelvis WITH Contrast IMPRESSION: Malrotation is noted of the GI tract. There is inflammation at the cecal area suspicious for appendicitis. Bilateral renal cysts. Electronically Signed: Barber Pisano DO at 17:10 EDT Reading Location ID and State: [facility] / [place] Tel [phone], Service support ,
[2022-12-28 15:43] LABS: AST(SGOT) 10 U/L (15-37); Alanine Aminotransfer ALT/SGPT 14 U/L (13-56); Albumin, Serum 3.6 g/dL (3.2-5.0); Alkaline Phosphatase 71 U/L (45-117); Anion Gap 7 (5-15); BUN 9 mg/dL (7-18); BUN/Creat Ratio 11.8 RATIO (10-20); Calcium,Total 9.5 mg/dL (8.5-10.1); Chloride 106 mmol/L (98-107); Creatinine, Serum 0.76 mg/dL (0.55-1.02); EST Glomerular Filtration Rate 80 mL/min (>60); Est Glom Filt Rate - Afr Amer 97 mL/min (>60); Globulin 3.6 g/dL (2.2-4.2); Glucose 105 mg/dL (74-106); Hematocrit 43.1 % (37-47); Hemoglobin 14.1 g/dL (12.0-15.0); Mean Corp Hgb Conc 32.7 g/dL (32-36); Mean Corpuscular Hgb 29.3 pg (27.0-32.0); Mean Corpuscular Volume 89.6 fL (81-99); Mean Platelet Vol. 9.6 fl (6.2-12.0); Platelet Count 466 K/mm3 (150-450); Potassium 4.4 mmol/L (3.5-5.1); Protein, Total 7.2 g/dL (6.4-8.2); RBC Distribution Width CV 13.2 % (11.6-14.6); RBC Distribution Width SD 43.4 fl (35.1-43.9); Red Blood Count 4.81 M/mm3 (4.2-5.4); Sodium Level 139 mmol/L (136-145); White Blood Count 9.9 K/mm3 (4.4-11.0)
[2022-12-28 15:44] LABS: Erythrocyte Sedimentation Rate 22 mm/hr (0-30)
== END | disposition home or self-care (01) ==
PROVIDERS: PCP Internal Medicine; Referring Provider Internal Medicine; Visit Provider Internal Medicine
DX: R10.30 Lower abdominal pain, unspecified (principal)
CPT/HCPCS: 74177; 80053; 85027; 85652; 86140; Q9967

== ENCOUNTER → 2023-01-29 | Outpatient (CLI) | payer MEDICARE, OTHER, SELFPAY ==
--- NOTE | 2023-01-29 07:36 | CT_ITS ---
STUDY: CT ABDOMEN AND PELVIS WITH CONTRAST REASON FOR EXAM: Female, 67 years old. check appendix and malrotation of colon RADIATION DOSAGE (If Supplied By Facility): CTDIvol = ( 13.2 ) mGy, DLP = ( 549.80 ) mGycm TECHNIQUE: Transaxial images were obtained from the dome of the diaphragm to the symphysis pubis without oral contrast. Oral and amp;amp; IV Readi-CAT and amp;amp; 100mL Isovue-370 was administered. Sagittal and coronal images were reconstructed. Individualized dose optimization techniques were used for this CT. COMPARISON: None. FINDINGS: The visualized lung bases are unremarkable. The visualized portions of the heart are within normal limits. Normal liver. Normal gallbladder and extrahepatic biliary system. Normal spleen. Normal pancreas. Normal bilateral adrenal glands. 2.4 cm cyst in the right kidney. 1.4 cm cyst in the left kidney. Normal visualized stomach. There is malrotation noted of the intestine without sign of obstruction. The appendix is visualized and appears normal. Normal abdominal aorta. Normal inferior vena cava. Normal retroperitoneum. Normal urinary bladder. Normal abdominal wall. Status post laminectomy at L4 and L5. Status post surgical fusion at L4-S1. CT/Abdomen/Pelvis WITH Contrast IMPRESSION: Renal cysts. Intestinal malrotation with no sign of obstruction. Electronically Signed: Barber Pisano DO at 18:13 EDT ,
[2023-01-29 08:03] LABS: CREATININE FINGERSTICK < 0.9 mg/dL (0.55-1.02); EGFR FINGERSTICK > 60.0000 mL/min (>60)
== END | disposition home or self-care (01) ==
LOC: CT 07:36
PROVIDERS: PCP Internal Medicine; Referring Provider Surgery; Visit Provider Surgery
DX: Q43.3 Congenital malformations of intestinal fixation (principal)
CPT/HCPCS: 74177; Q9967

== ENCOUNTER → 2023-03-10 | Outpatient (CLI) | payer MEDICARE, OTHER, SELFPAY ==
--- NOTE | 2023-03-10 13:57 | CT_ITS ---
STUDY: CT ABDOMEN AND PELVIS WITH CONTRAST REASON FOR EXAM: Female, 67 years old. abdominal pain (LLQ) Appendix is located there due to malrotation RADIATION DOSAGE (If Supplied By Facility): CTDIvol = ( 15.83 ) mGy, DLP = ( 478.36 ) mGycm TECHNIQUE: Transaxial images were obtained from the dome of the diaphragm to the symphysis pubis without oral contrast. Oral and amp; IV Gastrografin and amp; 100mL Isovue-300 was administered. Sagittal and coronal images were reconstructed. Individualized dose optimization techniques were used for this CT. COMPARISON: January 29, 2023 FINDINGS: The visualized lung bases are unremarkable. The visualized portions of the heart are within normal limits. Liver is enlarged and fatty infiltrated without mass or bile duct dilatation . Tiny polyp or poorly calcified gallstone without evidence for acute inflammation. Normal spleen. Normal pancreas. Normal bilateral adrenal glands. No evidence for renal obstruction. There is a simple cyst in each kidney which will not require additional imaging Normal visualized stomach. Malrotation of the bowel is observed. There is no evidence for small bowel obstruction. There is no evidence for acute appendicitis . Mild atherosclerotic changes of the aorta without evidence for aneurysm. Normal inferior vena cava. Normal retroperitoneum. Normal urinary bladder. There is prominence of the pelvic vascularity bilaterally which may be consistent with nonspecific pelvic congestive type changes.. Small left ovarian cyst is noted Normal abdominal wall. Lumbar spine demonstrates degenerative change. There are postsurgical changes status post bilateral laminectomy and posterior fusion at L4-5 and L5-S1 CT/Abdomen/Pelvis WITH Contrast IMPRESSION: No evidence for small bowel obstruction or acute appendicitis. Findings consistent with mild pelvic congestive type changes. Small left ovarian cyst Other findings as above Electronically Signed: Timbo Vivas MD at 16:34 EST ,
[2023-03-10 16:01] LABS: ALB/GLOB Ratio 1.3 RATIO (0.9-2.4); AST(SGOT) 13 U/L (15-37); Alanine Aminotransfer ALT/SGPT 19 U/L (13-56); Albumin, Serum 4.2 g/dL (3.2-5.0); Alkaline Phosphatase 74 U/L (45-117); Anion Gap 3 (5-15); BUN 12 mg/dL (7-18); BUN/Creat Ratio 17.4 RATIO (10-20); CRP < 2.90 mg/L (0.0-3.0); Calcium,Total 9.5 mg/dL (8.5-10.1); Chloride 108 mmol/L (98-107); Creatinine, Serum 0.69 mg/dL (0.55-1.02); EST Glomerular Filtration Rate 90 mL/min (>60); Est Glom Filt Rate - Afr Amer 109 mL/min (>60); Globulin 3.3 g/dL (2.2-4.2); Glucose 99 mg/dL (74-106); Potassium 4.1 mmol/L (3.5-5.1); Protein, Total 7.5 g/dL (6.4-8.2); Sodium Level 139 mmol/L (136-145)
[2023-03-10 16:04] LABS: Absolute Lymphocyte Count 2.65 X10^3/uL (0.83-4.51); Basophil# 0.09 X10^3/uL; Basophil% 1.2 % (0-1); Eosinophil# 0.05 X10^3/uL; Eosinophils% 0.7 % (0-5); Hemoglobin 14.1 g/dL (12.0-15.0); Lymphocyte # 2.65 X10^3/ul (0.83-4.51); Lymphocyte % 35.5 % (19-41); Mean Corp Hgb Conc 32.8 g/dL (32-36); Mean Corpuscular Hgb 29.6 pg (27.0-32.0); Mean Corpuscular Volume 90.1 fL (81-99); Mean Platelet Vol. 10.7 fl (6.2-12.0); Monocyte# 0.63 X10^3/uL; Monocyte% 8.4 % (0-10); NRBC Flagged by Analyzer 0 % (0-5); Neutrophil # 4.03 X10^3/uL (2.7-7.7); Neutrophil % 53.9 % (47-70); Platelet Count 323 K/mm3 (150-450); RBC Distribution Width CV 13.5 % (11.6-14.6); RBC Distribution Width SD 45.1 fl (35.1-43.9); Red Blood Count 4.77 M/mm3 (4.2-5.4); White Blood Count 7.5 K/mm3 (4.4-11.0)
[2023-03-10 17:08] LABS: Erythrocyte Sedimentation Rate 9 mm/hr (0-30)
== END | disposition home or self-care (01) ==
PROVIDERS: PCP Internal Medicine; Referring Provider Nurse Practitioner Family; Visit Provider Nurse Practitioner Family
DX: R10.9 Unspecified abdominal pain (principal)
CPT/HCPCS: 74177; 80053; 85025; 85652; 86140; Q9967

== ENCOUNTER → 2023-12-22 | Outpatient (CLI) | payer MEDICARE, OTHER, SELFPAY ==
--- NOTE | 2023-12-22 14:32 | BI_ITS ---
MAMMOGRAPHY - BILATERAL SCREENING REASON FOR EXAM: Female, 67 years old. Routine annual screening examination. PERTINENT HISTORY: Non-contributory. History of remote left needle breast biopsy. TECHNIQUE: Digital bilateral breast vane (3D mammographic acquisition) in the CC and MLO projections. 2-D mediolateral oblique (MLO) and craniocaudad (CC) views of both breasts were obtained. CAD: Full Field Digital Mammography with Computer Added Detection was performed. COMPARISON: Comparison is made with prior outside examination of August 12, 2006. FINDINGS: Breast Composition: There are scattered areas of fibroglandular density. There are no dominant masses or suspicious calcifications. Stable benign-appearing bilateral axillary lymph nodes. A tissue clip marker is seen in the slightly upper lateral aspect of the left breast. No other significant abnormalities are identified. There has been no significant change since the prior study. BI/SCRN MAMM (CAD)W/VANE BILAT IMPRESSION: Stable bilateral screening mammogram. Yearly follow-up mammogram recommended. (A) ASSESSMENT CATEGORY: BIRADS Category 2: Benign. A letter regarding these results will be sent to the patient by the facility within 30 days. Approximately 10% of breast cancers are not detected by mammography. A normal mammogram should not delay biopsy of a clinically suspicious abnormality. [id number] Electronically Signed: Art Epps MD at 15:30 EDT ,
--- NOTE | 2023-12-22 14:34 | BD_ITS ---
STUDY: DUAL ENERGY X-RAY ABSORPTIOMETRY / DXA REASON FOR EXAM: Female, 68 years old. Z78.0 TECHNIQUE: Bone Mineral Density (BMD) measurements of lumbar spine and bilateral hips were obtained. COMPARISON: None. FINDINGS: Lumbar Spine (L1-L4): g/cm2 (1.091) / T-score (1.0) / Z-score (2.9) Findings are suggestive of normal bone density with a low fracture risk. Left Femur Total: g/cm2 (0.881) / T-score (-0.5) / Z-score (0.9) Left Femoral Neck: g/cm2 (0.670) / T-score (-1.6) / Z-score (0.1) Right Femur Total: g/cm2 (0.816) / T-score (-1.0) / Z-score (0.4) Right Femoral Neck: g/cm2 (0.610) / T-score (-2.2) / Z-score (-0.5) BD/Dexa Bone Density Study IMPRESSION: The patient is considered osteopenic as outlined below according to World López Organization (WHO) criteria with a moderate fracture risk. Reference Information: The T-score is the number of standard deviations above or below the standard which is normal for young adults at their peak bone mineral density. The World Health Organization (WHO) interprets the T-scores as follows: Above -1 Normal bone density Between -1 and -2.5 Osteopenia Equal to / or below -2.5 Osteoporosis As a practical clinical guideline, osteopenia may be graded as follows: Mild -1 through -1.5 Moderate -1.6 through -2.0 Severe -2.1 through -2.4 The Z-score is the number of standard deviations above or below age-matched controls. A Z-score of less than -1.5 would be considered abnormal. References: 1. NIH Osteoporosis and Related Bone Diseases www osteo.org 2. International Society for Clinical Densitometry www iscd.org 3. National Osteoporosis Foundation www nof.org Electronically Signed: Art Epps MD at 14:03 EDT ,
== END | disposition home or self-care (01) ==
LOC: OPBD 14:27
PROVIDERS: PCP Internal Medicine; Referring Provider Internal Medicine; Visit Provider Internal Medicine
DX: Z12.31 Encounter for screening mammogram for malignant neoplasm of breast (principal); Z78.0 Asymptomatic menopausal state
CPT/HCPCS: 77063; 77067; 77080

== ENCOUNTER → 2023-12-23 | Outpatient (CLI) | payer MEDICARE, OTHER, SELFPAY ==
--- NOTE | 2023-12-23 14:03 | CT_ITS ---
HISTORY: smoker. TECHNIQUE: Helically acquired images were obtained of the chest without contrast. A radiation dose optimization technique was used for this scan. 721 images. COMPARISON: 02/14/2021. FINDINGS: LARGE AIRWAYS: Patent. LUNGS: Hyperinflation with chronic mild linear scarring in the right middle lobe. No new suspicious nodule or acute alveolar consolidation. PLEURA: No pneumothorax or significant pleural effusion. HEART/PERICARDIUM: Heart within normal limits in size with coronary artery calcification. No pericardial effusion. VESSELS: Thoracic aorta nondilated. Atherosclerosis present. MEDIASTINUM/RICHIE: No pathologically enlarged adenopathy. BONES: Degenerative change. CT/Low Dose CT Lung Screening IMPRESSION: Lung-RADS category 1: Continue annual screening with low dose CT. Electronically Signed: Carmen Patten MD at 15:06 EDT ,
== END | disposition home or self-care (01) ==
LOC: CT 13:58
PROVIDERS: PCP Internal Medicine; Referring Provider Internal Medicine; Visit Provider Internal Medicine
DX: Z12.2 Encounter for screening for malignant neoplasm of respiratory organs (principal); F17.210 Nicotine dependence, cigarettes, uncomplicated
CPT/HCPCS: 71271

== ENCOUNTER → 2023-12-29 | Outpatient (CLI) | payer MEDICARE, OTHER, SELFPAY ==
[2023-12-29 13:58] LABS: Absolute Lymphocyte Count 2.53 X10^3/uL (0.83-4.51); Absolute Neutrophil Count 8.1 X10^3/uL (2.0-7.7); Basophil# 0.09 X10^3/uL; Basophil% 0.8 % (0-1); Eosinophil# 0.07 X10^3/uL; Eosinophils% 0.6 % (0-5); Hematocrit 47.9 % (37-47); Hemoglobin 15.7 g/dL (12.0-15.0); Lymphocyte # 2.53 X10^3/ul (0.83-4.51); Lymphocyte % 21.6 % (19-41); Mean Corp Hgb Conc 32.8 g/dL (32-36); Mean Corpuscular Hgb 29.2 pg (27.0-32.0); Mean Platelet Vol. 9.8 fl (6.2-12.0); Monocyte# 0.86 X10^3/uL; Monocyte% 7.4 % (0-10); NRBC Flagged by Analyzer 0 % (0-5); Neutrophil # 8.09 X10^3/uL (2.7-7.7); Neutrophil % 69.2 % (47-70); Platelet Count 321 K/mm3 (150-450); RBC Distribution Width SD 42.3 fl (35.1-43.9); Red Blood Count 5.38 M/mm3 (4.2-5.4); White Blood Count 11.7 K/mm3 (4.4-11.0)
[2023-12-29 14:19] LABS: AST(SGOT) 16 U/L (15-37); Alanine Aminotransfer ALT/SGPT 16 U/L (13-56); Albumin, Serum 4.1 g/dL (3.2-5.0); Alkaline Phosphatase 94 U/L (45-117); Anion Gap 10 (5-15); BUN 11 mg/dL (7-18); BUN/Creat Ratio 14.9 RATIO (10-20); Calcium,Total 9.8 mg/dL (8.5-10.1); Chloride 104 mmol/L (98-107); Creatinine, Serum 0.74 mg/dL (0.55-1.02); EST Glomerular Filtration Rate 84 mL/min (>60); Est Glom Filt Rate - Afr Amer 101 mL/min (>60); Globulin 4.3 g/dL (2.2-4.2); Glucose 115 mg/dL (74-106); Potassium 4.2 mmol/L (3.5-5.1); Protein, Total 8.4 g/dL (6.4-8.2); Sodium Level 139 mmol/L (136-145)
[2023-12-29 17:24] LABS: Erythrocyte Sedimentation Rate 15 mm/hr (0-30)
== END | disposition home or self-care (01) ==
LOC: LAB 13:33
PROVIDERS: PCP Internal Medicine; Referring Provider Internal Medicine; Visit Provider Internal Medicine
DX: R10.30 Lower abdominal pain, unspecified (principal)
CPT/HCPCS: 36415; 80053; 85025; 85652; 86140

== ENCOUNTER → 2024-01-03 | Outpatient (CLI) | payer MEDICARE, OTHER, SELFPAY ==
--- NOTE | 2024-01-03 07:18 | CT_ITS ---
STUDY: CT ABDOMEN AND PELVIS WITH CONTRAST REASON FOR EXAM: Female, 68 years old. LOWER ABD PAIN RADIATION DOSAGE (If Supplied By Facility): CTDIvol = ( 19.93 ) mGy, DLP = ( 588.24 ) mGycm TECHNIQUE: Transaxial images were obtained from the dome of the diaphragm to the symphysis pubis with oral contrast. Oral and amp; IV Readi-CAT and amp; 100mL Isovue-370 was administered. Sagittal and coronal images were reconstructed. Individualized dose optimization techniques were used for this CT. COMPARISON: 03/10/2023 FINDINGS: The visualized lung bases are unremarkable. The visualized portions of the heart are within normal limits. Normal liver. The gallbladder is contracted. Normal spleen. Normal pancreas. Normal bilateral adrenal glands. 3 cm cyst upper pole right kidney. Normal left kidney. Normal visualized stomach. Mid gut malrotation. Normal colon. The appendix is visualized and appears normal. Normal abdominal aorta. Normal inferior vena cava. Normal retroperitoneum. Normal urinary bladder. Prominent left ovarian vein and parametrial veins which can be seen in pelvic congestion syndrome. Normal abdominal wall. Status post discectomy, interbody fusion, transpedicular fixation of the lower lumbar spine. CT/Abdomen/Pelvis WITH Contrast IMPRESSION: No acute abnormality. Midgut malrotation. Possible pelvic congestion syndrome. Electronically Signed: Alan Jean Baptiste MD at 11:26 EDT ,
== END | disposition home or self-care (01) ==
LOC: CT 07:17
PROVIDERS: PCP Internal Medicine; Referring Provider Internal Medicine; Visit Provider Internal Medicine
DX: R10.30 Lower abdominal pain, unspecified (principal)
CPT/HCPCS: 74177; Q9967

== ENCOUNTER → 2024-01-17 | Outpatient (CLI) | payer MEDICARE, OTHER, SELFPAY ==
[2024-01-17 10:54] LABS: Erythrocyte Sedimentation Rate 4 mm/hr (0-30)
[2024-01-17 10:56] LABS: Absolute Lymphocyte Count 2.35 X10^3/uL (0.83-4.51); Absolute Neutrophil Count 4.5 X10^3/uL (2.0-7.7); Basophil# 0.12 X10^3/uL; Basophil% 1.6 % (0-1); Eosinophil# 0.28 X10^3/uL; Eosinophils% 3.6 % (0-5); Hematocrit 46.1 % (37-47); Hemoglobin 14.9 g/dL (12.0-15.0); Lymphocyte # 2.35 X10^3/ul (0.83-4.51); Lymphocyte % 30.6 % (19-41); Mean Corp Hgb Conc 32.3 g/dL (32-36); Mean Corpuscular Hgb 29.6 pg (27.0-32.0); Mean Corpuscular Volume 91.5 fL (81-99); Mean Platelet Vol. 10.7 fl (6.2-12.0); Monocyte# 0.46 X10^3/uL; NRBC Flagged by Analyzer 0 % (0-5); Neutrophil # 4.45 X10^3/uL (2.7-7.7); Neutrophil % 57.9 % (47-70); Platelet Count 332 K/mm3 (150-450); RBC Distribution Width CV 13.4 % (11.6-14.6); RBC Distribution Width SD 45.3 fl (35.1-43.9); Red Blood Count 5.04 M/mm3 (4.2-5.4); White Blood Count 7.7 K/mm3 (4.4-11.0)
[2024-01-17 11:31] LABS: ALB/GLOB Ratio 1.1 RATIO (0.9-2.4); AST(SGOT) 15 U/L (15-37); Alanine Aminotransfer ALT/SGPT 18 U/L (13-56); Albumin, Serum 3.7 g/dL (3.2-5.0); Alkaline Phosphatase 96 U/L (45-117); Anion Gap 6 (5-15); BUN 9 mg/dL (7-18); BUN/Creat Ratio 11.6 RATIO (10-20); CRP 3.83 mg/L (0.0-3.0); Calcium,Total 9.6 mg/dL (8.5-10.1); Chloride 107 mmol/L (98-107); Creatinine, Serum 0.78 mg/dL (0.55-1.02); EST Glomerular Filtration Rate 79 mL/min (>60); Est Glom Filt Rate - Afr Amer 95 mL/min (>60); Globulin 3.5 g/dL (2.2-4.2); Glucose 100 mg/dL (74-106); Potassium 4.7 mmol/L (3.5-5.1); Protein, Total 7.2 g/dL (6.4-8.2); Sodium Level 141 mmol/L (136-145)
== END | disposition home or self-care (01) ==
PROVIDERS: PCP Internal Medicine; Visit Provider Internal Medicine
DX: R10.30 Lower abdominal pain, unspecified (principal)
CPT/HCPCS: 80053; 85025; 85652; 86140

== ENCOUNTER 2024-07-18 09:06 | Outpatient (CLI) | payer MEDICARE, OTHER, SELFPAY ==
--- NOTE | 2024-07-18 09:10 | US_ITS ---
PROCEDURE: ABD LIMITED W/ ELASTOGRAPHY REASON FOR EXAM: ABDM LIMITED W/ ELASTOGRAPHY COMPARISON: None. TECHNIQUE: Right upper quadrant abdominal ultrasound. Neetu ElastQ Imaging shear wave elastography for non-invasive assessment of liver tissue stiffness. Neetu EPIQ Elite. FINDINGS: LIVER: Size: Unremarkable Length: 15.5 cm Echotexture: Diffusely echogenic suggesting fatty infiltration Contour: Normal Lesions: None identified Elastography: EQI Med: 6 kPa EQI Med Edgar: 1.4 m/s IQR/Med: 12 %* GALLBLADDER: Multiple echogenic gallstones are identified. COMMON BILE DUCT: Normal it measures 5.6 cm.. PANCREAS: Normal There is a 3 cm x 2.2 cm 3.3 cm cyst in the right kidney. US/ABD Limited w/ Elastography IMPRESSION: NO TO MILD HEPATIC FIBROSIS Fatty infiltration of the liver. Multiple gallstones. Right renal cyst. Reference Values: SRU <1.37 m/s (5.7kPa): No to mild fibrosis 1.37 m/s - 2.2 m/s: Moderate to severe fibrosis >2.2 m/s (15kPa): Significant fibrosis / cirrhosis METAVIR Score F2 or higher: 1.34 m/s (5.7kPa) F3 or higher: 1.55 m/s (7.3kPa) F4: 1.80 m/s (10kPa) * If the IQR/Med is >30%, the variance in the measurements is a large and the a ccuracy of the measurement may be in question. Reading Location: [id number]
== END 2024-07-18 23:59 | disposition home or self-care (01) ==
PROVIDERS: PCP Internal Medicine; Referring Provider Internal Medicine; Visit Provider Internal Medicine
DX: K76.0 Fatty (change of) liver, not elsewhere classified (principal)
CPT/HCPCS: 76705; 76981